=== PATIENT | female | born 2005 | race Caucasian/White ===

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

== ENCOUNTER 2024-01-11 09:02 | Outpatient (CLI) | payer OTHER, SELFPAY ==
[2024-01-11 09:15] LABS: Basophils Absolute Auto 0.03 K/mm3 (0.00-0.10); Basophils Percent Auto 0.4 % (0.0-1.0); Eosinophils Absolute Auto 0.11 K/mm3 (0.02-0.50); Eosinophils Percent Auto 1.4 % (1.0-6.0); Hematocrit 42.6 % (35.0-49.0); Hemoglobin 14.2 g/dL (12.0-15.0); Immature Granulocyte Absolute 0.02 K/mm3 (0.00-0.00); Immature Granulocyte Percent A 0.3 % (0.0-0.0); Lymphocytes Absolute Auto 1.44 K/mm3 (1.10-4.50); Lymphocytes Percent Auto 18.6 % (18.0-42.0); Mean Corpuscular HGB Conc 33.3 g/dL (32-36); Mean Corpuscular Hemoglobin 28.4 pg (27.0-31.0); Mean Corpuscular Volume 85.2 fL (78.0-102.0); Mean Platelet Volume 9.5 fl (9.2-11.8); Monocytes Absolute Auto 0.44 K/mm3 (0.10-0.90); Monocytes Percent Auto 5.7 % (2.0-11.0); Neutrophils Absolute Auto 5.69 K/mm3 (1.70-7.20); Neutrophils Percent Auto 73.6 % (50.0-70.0); Platelet Count Result 279 K/mm3 (150-420); Red Cell Distribution Width 11.8 % (11.6-14.4); White Blood Count 7.7 K/mm3 (4.8-10.8)
[2024-01-13 04:08] LABS: Vitamin D 25 Hydroxy 25 ng/mL (30-100)
[2024-01-13 10:56] LABS: Alanine Aminotransferase 17 U/L (6-35); Albumin Level 4.8 g/dL (3.7-5.6); Alkaline Phosphatase 62 U/L (45-116); Anion Gap 10 mmol/L (4-12); Aspartate Amino Transferase 22 U/L (14-36); Bilirubin,Total 0.5 mg/dL (0.2-1.3); Blood Urea Nitrogen 12 mg/dL (8-21); Calcium 9.7 mg/dL (8.9-10.7); Carbon Dioxide 24 mmol/L (22-30); Chloride 105 mmol/L (98-107); Cholesterol 219 mg/dL (0-200); Estimated Glomerular Filt Rate > 60; Glucose 76 mg/dL (65-110); HDL Direct 76 mg/dL; LDL Cholesterol Calculated 129 mg/dL (<130); Osmolality Calculated 286 mOsm/kg (285-295); Potassium 4.2 mmol/L (3.4-5.0); Sodium 139 mmol/L (134-143); Triglycerides 70 mg/dL (<150)
== END 2024-01-11 09:03 | disposition home or self-care (01) ==
PROVIDERS: PCP Nurse Practitioner Family; Visit Provider Family Medicine
DX: Z00.00 Encounter for general adult medical examination without abnormal findings (principal); Z13.29 Encounter for screening for other suspected endocrine disorder; S69.92XA Unspecified injury of left wrist, hand and finger(s), initial encounter; F32.9 Major depressive disorder, single episode, unspecified; E55.9 Vitamin D deficiency, unspecified; E53.8 Deficiency of other specified B group vitamins; Z79.899 Other long term (current) drug therapy; R74.01 Elevation of levels of liver transaminase levels; Z13.220 Encounter for screening for lipoid disorders
CPT/HCPCS: 36415; 80053; 80061; 82306; 82607; 84443; 85025

== ENCOUNTER 2024-02-01 20:08 | Emergency (ER) | payer OTHER, SELFPAY ==
--- NOTE | ~2024-02-01 | XR_ITS ---
EXAM: XR foot LT min 3V DATE: 02/01/2024 20:33 HISTORY: Nontraumatic pain . COMPARISON: None available. FINDINGS: Normal mineralization. No fracture or dislocation. No lytic or blastic lesion. Joint space s are maintained. No erosion or periosteal change. Soft tissues within normal limits. IMPRESSION: No acute osseous finding in the left foot. Reviewed, dictated and finalized at location K.
[2024-02-01 20:13] VITALS: BP 121/57; PULSE 79; RESP 18; TEMP 36.9; O2SAT 99
[2024-02-01 20:16] VITALS: BP 121/57; PULSE 79; RESP 18; TEMP 36.9; O2SAT 99
--- NOTE | 2024-02-01 20:22 | ED.EXTPRO ---
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 She denies any trauma. Related Data Allergies Allergy/AdvReac Type Severity Reaction Status Date / Time codeine Allergy Unknown Verified 02/01/24 20:13 Sulfa (Sulfonamide Allergy Unknown Verified 02/01/24 20:13 Antibiotics) sulfamethoxazole Allergy Unknown Verified 02/01/24 20:13 [From Bactrim] trimethoprim [From Bactrim] Allergy Unknown Verified 02/01/24 20:13 Sulfonamides Allergy Intermediate Unknown Uncoded 02/01/24 20:13 Review of Systems Review of Systems: All systems reviewed & are unremarkable except as noted in HPI and below PMFSH Past Medical History Medical History Anxiety GERD (gastroesophageal reflux disease) Seasonal allergies Wrist injury Surgical History Surgical History H/O eye surgery Family History Family History Father Diabetes mellitus Hypothyroidism Hyperlipidemia Sibling Depression Ankylosing spondylitis Seronegative rheumatoid arthritis Asthma Anxiety Mother Depression Anxiety Grandparent Cancer Alcoholism Social History Social History Social History: Caffeine-soda Smoking status: Never smoker Alcohol intake: never Substance use: former Substance use type: marijuana Lack of Transportation: No Lack of Food: Never True Current Housing: I Have Housing Concerned About Future Housing: No Difficulty Paying Gas/Electric Bills: No Difficulty Paying for Meds: No Currently Unemployed: No Education: High School Diploma/GED Difficulty w/ Childcare or Family Care: No Living arrangements: with family Occupation/Education: student Gender identity (if verbalized by the patient): Female Agree to blood products: Yes Exam Narrative: General appearance: Well-developed, well-nourished Skin: Normal color Vascular: Normal peripheral pulses, normal capillary refill. Musculoskeletal: Mild to moderate tenderness at the ball of the foot between the big toe and 2nd toe. No swelling, no bruises, Neurologic: Alert and oriented ?3, MACHINE TAPER is normal as tested, no gross motor deficit Course Vital Signs Vital signs: Vital Signs Temperature 36.9 C 02/01/24 20:13 Pulse Rate 79 02/01/24 20:13 Respiratory Rate 18 02/01/24 20:13 Blood Pressure 121/57 L 02/01/24 20:13 Pulse Oximetry 99 02/01/24 20:13 Oxygen Delivery Room Air 02/01/24 20:13 Temperature 36.9 C 02/01/24 20:16 Pulse Rate 79 02/01/24 20:16 Respiratory Rate 18 02/01/24 20:16 Blood Pressure 121/57 L 02/01/24 20:16 Pulse Oximetry 99 02/01/24 20:16 Oxygen Delivery Room Air 02/01/24 20:16 MDM - Extremity (Nontraumatic) Differential Diagnosis Differential diagnosis: Likely other ( tendinitis, plantar fasciitis, Arriola's neuroma, tight shoes) Critical Care Time Critical Care Time Critical Care Time: No Discharge Plan Discharge Clinical Impression: Acute foot pain Patient Disposition: Home, Self-Care Condition: Stable Instructions: Arriola Neuroma (ED), Metatarsalgia (DC) Additional Instructions: Return if symptoms are worsening , call your family niels
--- NOTE | 2024-02-01 20:28 | PC.NURSE ---
xray completed at the bedside
== END 2024-02-01 20:55 | disposition home or self-care (01) ==
PROVIDERS: Emergency Provider Emergency Medicine; PCP Family Medicine
DX: M79.672 Pain in left foot (principal)
CPT/HCPCS: 73630; 99283

== ENCOUNTER 2024-02-21 08:41 | Outpatient (CLI) | payer OTHER, SELFPAY ==
--- NOTE | ~2024-02-21 | XR_ITS ---
XR abdomen/kub 1V Ordering provider: Alexsandra Hardy DO History: . LT diaphragm pain X couple months, hunch over/apply pressure . Comparison: None. FINDINGS: BOWEL: Nonobstructive bowel gas pattern. ORGANOMEGALY: None. SIGNIFICANT PATHOLOGIC CALCIFICATIONS: None. OTHER: No free air is seen under the diaphragm. IMPRESSION: NO ACUTE ABDOMINAL FINDINGS. Reviewed, dictated and finalized at location A.
== END 2024-02-21 08:42 | disposition home or self-care (01) ==
PROVIDERS: PCP Family Medicine; Visit Provider Family Medicine
DX: R10.9 Unspecified abdominal pain (principal)
CPT/HCPCS: 74018

== ENCOUNTER 2024-05-03 02:20 | Emergency (ER) | payer OTHER, SELFPAY ==
[2024-05-03 02:25] VITALS: BP 141/87; PULSE 110; RESP 16; TEMP 36.4; O2SAT 98
--- NOTE | 2024-05-03 02:27 | PC.NURSE ---
COVID PCR obtained and taken to lab
--- NOTE | 2024-05-03 02:42 | ED_ITS ---
HPI - General Adult General Chief complaint: Nausea/Vomiting/Diarrhea Stated complaint: VOMITING Time Seen by Provider: 05/03/24 02:28 Source: patient Mode of arrival: ambulatory Limitations: no limitations History of Present Illness HPI narrative: 18-year-old complains of nausea and vomiting that started 1 hour prior to coming to the emergency department. She vomited up her food and had several diarrheal stools loose watery nonbloody. Prior to that she was doing fine eating and drinking voiding. Fine no bleeding or bruising problems walking or talking or seeing or hearing. Denies any rash or itching cough fever some shortness of breath difficulty breathing sore throat dizziness or lightheadedness swelling lumps or bumps or any other complaints. Past medical history: Anxiety depression on citalopram. she is on omeprazole Allergies: Codeine sulfa Bactrim. Related Data Allergies Allergy/AdvReac Type Severity Reaction Status Date / Time codeine Allergy Unknown Verified 05/03/24 02:28 Sulfa (Sulfonamide Allergy Unknown Verified 05/03/24 02:28 Antibiotics) sulfamethoxazole (From Allergy Unknown Verified 05/03/24 02:28 Bactrim) trimethoprim (From Bactrim) Allergy Unknown Verified 05/03/24 02:28 Sulfonamides Allergy Intermediate Unknown Uncoded 02/20/24 13:28 Review of Systems 2 Review of Systems: All systems reviewed & are unremarkable except as noted in HPI and below PMFSH Past Medical History Medical History Seasonal allergies Wrist injury Anxiety GERD (gastroesophageal reflux disease) Surgical History Surgical History H/O eye surgery Family History Family History Father Diabetes mellitus Hypothyroidism Hyperlipidemia Sibling Depression Ankylosing spondylitis Seronegative rheumatoid arthritis Asthma Anxiety Mother Depression Anxiety Grandparent Cancer Alcoholism Social History Social History Social History: Caffeine-soda Smoking status: Never smoker Alcohol intake: never Substance use: former Substance use type: marijuana Lack of Transportation: No Lack of Food: Never True Current Housing: I Have Housing Concerned About Future Housing: No Difficulty Paying Gas/Electric Bills: No Difficulty Paying for Meds: No Currently Unemployed: No Education: High School Diploma/GED Difficulty w/ Childcare or Family Care: No Living arrangements: with family Occupation/Education: student Gender identity (if verbalized by the patient): Female Agree to blood products: Yes Exam 2 Narrative: White female patient with Mild distress, shivering with goose bumps.? Head normocephalic, atraumatic.? Eyes conjunctiva pink sclera nonicteric.? Extraocular movements are intact.? Ears externally normal. ?Oropharynx is clear with moist mucous membranes without exudates.? Neck is supple nontender no lymphadenopathy.? Back is nontender.? Lungs are clear.? Heart is Tachycardic rate and regular rhythm without murmurs gallops or rubs.? Chest wall nontender. Abdomen is soft and nontender no hepatosplenomegaly or masses no CVA tenderness no abdominal bruits.? Extremities no cyanosis clubbing or edema.? Skin is warm and dry without rashes or lesions.? Neurological patient is alert and oriented x4.? Motor and sensory grossly intact.? Gait is normal. Course Vital Signs Vital signs: Vital Signs Temperature 36.4 C 05/03/24 02:25 Pulse Rate 110 H 05/03/24 02:25 Respiratory Rate 16 05/03/24 02:25 Blood Pressure 141/87 H 05/03/24 02:25 Pulse Oximetry 98 05/03/24 02:25 Oxygen Delivery Room Air 05/03/24 02:25 Temperature 36.4 C 05/03/24 02:25 Pulse Rate 73 05/03/24 04:34 Respiratory Rate 18 05/03/24 04:34 Blood Pressure 115/77 05/03/24 04:34 Pulse Oximetry 100 05/03/24 04:34 Oxygen Delivery Room Air 05/03/24 04:34 Medical Decision Making [facility] Narrative Medical decision making narrative: ?Patient placed in room: 1 with her boyfriend ? History and physical was performed. Normal CBC and lipase, flu COVID and RSV Normal CMP except for potassium at 3.3 and ALT of 76 and Osmo 296 Urine specific gravity 1.030+1 ketones Independent Historian: boyfriend External Source Review: Differential Dx includes but not limited to: COVID flu RSV dehydration nausea vomiting diarrhea volume depletion Medications were Reviewed: home meds reviewed Medications given: normal saline 1 L bolus Zofran 4 mg IV , K-Dur 40 p.o. Patient is feeling much better at discharge any nausea or discomfort or pain. Independently Interpreted by me: Labs independently interpreted by me. Shared decision Making: evaluation was discussed all questions were asked and answered patient agreed with the plan she would take K-Dur 40 mg a daily for 10 days, Zofran every 4 hours as needed for nausea vomiting follow up with her primary care provider return if she got worse or develops any new symptoms. Social Situation Impacting Patients Care: Discussed with Dr. MENSAH DIAGNOSIS: nausea vomiting diarrhea, volume depletion, hyponatremia mild DISPOSITION : discharge home CONDITION AT DISCHARGE: stable Vital Signs Vital Signs: Vital Signs Temperature 36.4 C 05/03/24 02:25 Pulse Rate 110 H 05/03/24 02:25 Respiratory Rate 16 05/03/24 02:25 Blood Pressure 141/87 H 05/03/24 02:25 Pulse Oximetry 98 05/03/24 02:25 Oxygen Delivery Room Air 05/03/24 02:25 Temperature 36.4 C 05/03/24 02:25 Pulse Rate 73 05/03/24 04:34 Respiratory Rate 18 05/03/24 04:34 Blood Pressure 115/77 05/03/24 04:34 Pulse Oximetry 100 05/03/24 04:34 Oxygen Delivery Room Air 05/03/24 04:34 Lab Data 05/03/24 02:35 05/03/24 02:35 Labs: Lab Results 05/03/24 05/03/24 05/03/24 Range/Units 02:35 03:01 03:33 WBC 7.7 (4.8-10.8) K/mm3 RBC 5.11 (4.20-5.40) M/mm3 Hgb 14.4 (12.0-15.0) g/dL Hct 42.6 (35.0-49.0) % MCV 83.4 (78.0-102.0) fL MCH 28.2 (27.0-31.0) pg MCHC 33.8 (32-36) g/dL RDW 11.9 (11.6-14.4) % Plt Count 326 (150-420) K/mm3 MPV 9.6 (9.2-11.8) fl Sodium 143 (136-145) mmol/L Potassium 3.3 L (3.5-5.1) mmol/L Chloride 106 (98-108) mmol/L Carbon Dioxide 24 (21-32) mmol/L Anion Gap 13 H (4-12) mmol/L BUN 9 (7-18) mg/dL Creatinine 0.95 (0.55-1.02) mg/dL Estim Creat Clear Calc 82 ml/min Estimated GFR > 60 (59 - ) Glucose 127 H (70-99) mg/dL Calculated Osmolality 296 H (285-295) mOsm/kg Calcium 9.3 (8.5-10.1) mg/dL Total Bilirubin 0.5 (0.00-1.00) mg/dL AST 26 (15-37) U/L ALT 76 H (14-59) U/L Alkaline Phosphatase 68 (50-130) U/L Total Protein 8.0 (6.4-8.2) g/dL Albumin 4.3 (3.4-5.0) g/dL Lipase 47 (16-77) U/L Serum HCG, Qual Negative Urine Color Light yellow (Yellow) Urine Appearance Clear (Clear) Urine pH 6.0 (5.0-8.0) Ur Specific [place] >= 1.030 H (1.010-1.020) Urine Protein Negative (Negative) Urine Glucose (UA) Negative (Negative) Urine Ketones 1+ H (Negative) Ur Blood (Man) Negative (Negative) Urine Nitrate Negative (Negative) Urine Bilirubin Negative (Negative) Urine Urobilinogen 0.2 (0.2-1.0) mg/dL Leukocyte Esterase Rfl Negative (Negative) LACY/UL Influenza A (RT-PCR) Negative (Negative) Influenza B (RT-PCR) Negative (Negative) RSV (RT-PCR) Negative (Negative) SARS-CoV-2 RNA (RT-PCR) Negative (Negative) Discharge Plan Discharge Clinical Impression: Nausea vomiting and diarrhea, Fluid volume depletion, Acute hypokalemia Patient Disposition: Home, Self-Care Condition: Stable Instructions: Gastroenteritis (ED), Acute Nausea and Vomiting (ED) Additional Instructions: advance her diet slowly as tolerated. Zofran 4 mg oral dissolvable tablet under the tongue every 4 hours as needed for nausea vomiting. K-Dur 40 mEq daily for 10 days. Follow-up with primary care provider within the next 1-7 days. Return if you get worse or develops any new symptoms. Patient Language: Zimbabwean Prescriptions: New potassium chloride 20 mEq tablet,ER particles/crystals 40 meq PO DAILY 10 Days Qty: 20 0RF ondansetron 4 mg tablet,disintegrating 4 mg PO Q4H PRN (Reason: nausea and vomiting) 5 Days Qty: 12 0RF Rx Instructions: give 1st dose 30min before emetogenic chemo No Action omeprazole 20 mg capsule,delayed release(DR/EC) 20 mg PO DAILY Qty: 90 1RF escitalopram oxalate [Lexapro] 10 mg tablet 15 mg PO DAILY 90 Days Qty: 135 1RF norethindrone ac-eth estradiol [05/28 (21)] 1-20 mg-mcg tablet 1 tablet PO DAILY Qty: 63 2RF Follow-up/Referrals: Alexsandra Hardy DO [Primary Care Provider] - Time of Disposition: 04:37
[2024-05-03] MEDS: ONDANSETRON INJ 4 MG/2 ML VIAL IV PUSH (02:49)
[2024-05-03] MEDS: SODIUM CHLORIDE 0.9% IV 1,000 ML 999 ML IV CONT (02:49)
--- NOTE | 2024-05-03 02:55 | PC.NURSE ---
PATIENT IS AWARE THAT A URINE SAMPLE IS NEEDED. DOES NOT NEED TO VOID AT THIS TIME. CALL LIGHT IN REACH. BOYFRIEND AT THE BEDSIDE
[2024-05-03 02:57] LABS: Hematocrit 42.6 % (35.0-49.0); Hemoglobin 14.4 g/dL (12.0-15.0); Mean Corpuscular HGB Conc 33.8 g/dL (32-36); Mean Corpuscular Hemoglobin 28.2 pg (27.0-31.0); Mean Corpuscular Volume 83.4 fL (78.0-102.0); Mean Platelet Volume 9.6 fl (9.2-11.8); Platelet Count Result 326 K/mm3 (150-420); Red Blood Count 5.11 M/mm3 (4.20-5.40); Red Cell Distribution Width 11.9 % (11.6-14.4); White Blood Count 7.7 K/mm3 (4.8-10.8)
[2024-05-03 03:02] LABS: SPREG INTERNAL CONTROL Positive; Serum Qual hCG Negative
[2024-05-03 03:11] LABS: Influenza A QL RT-PCR Negative (Negative); Influenza B QL RT-PCR Negative (Negative); RSV RNA, RT-PCR Negative (Negative); SARS-CoV-2 RNA PCR Negative (Negative)
[2024-05-03 03:16] LABS: Alanine Aminotransferase 76 U/L (14-59); Albumin Level 4.3 g/dL (3.4-5.0); Alkaline Phosphatase 68 U/L (50-130); Anion Gap 13 mmol/L (4-12); Aspartate Amino Transferase 26 U/L (15-37); Bilirubin,Total 0.5 mg/dL (0.00-1.00); Blood Urea Nitrogen 9 mg/dL (7-18); Calcium 9.3 mg/dL (8.5-10.1); Carbon Dioxide 24 mmol/L (21-32); Chloride 106 mmol/L (98-108); Estimated CRCL calculation 82 ml/min; Estimated Glomerular Filt Rate > 60; Glucose 127 mg/dL (70-99); Lipase 47 U/L (16-77); Osmolality Calculated 296 mOsm/kg (285-295); Potassium 3.3 mmol/L (3.5-5.1); Sodium 143 mmol/L (136-145)
--- NOTE | 2024-05-03 03:31 | PC.NURSE ---
PATIENT AMBULATED TO THE BATHROOM. ENCOURAGED PATIENT TO PROVIDE URINE SAMPLE.
--- NOTE | 2024-05-03 03:34 | PC.NURSE ---
URINE SAMPLE GIVEN. PATIENT REPORTS THAT THE ZOFRAN HELPED WITH HER NAUSEA
[2024-05-03 03:40] LABS: Add Urine Microscopic? NO; Appearance Urine Clear (Clear); Bilirubin Urine Negative (Negative); Blood Urine Negative (Negative); Color Urine Light Yellow (Yellow); Glucose Urine UA Negative (Negative); Ketones Urine 1+ (Negative); Leukocyte Esterase Ur Negative LEU/UL (Negative); Nitrate Urine Negative (Negative); Protein Urine Negative (Negative); Specific Grav Ur >= 1.030 (1.010-1.020); Urobilinogen Urine 0.2 mg/dL (0.2-1.0)
[2024-05-03] MEDS: POTASSIUM CHLORIDE 20 MEQ ER TABLET 40 MEQ PO (04:00)
--- NOTE | 2024-05-03 04:28 | PC.NURSE ---
PATIENT RESTING ON STRETCHER. REPORTS THAT SHE IS FEELING BETTER. BOYFRIEND AT HER SIDE. CALL LIGHT IN REACH
[2024-05-03 04:34] VITALS: BP 115/77; PULSE 73; RESP 18; O2SAT 100
--- OUTSIDE RECORDS SUMMARY | 2024-05-10 03:23 | XMS_ITS | Patient Health Summary ---
Author Organization [facility] Address [address] [place] [address] Care Team Providers Care Technical Services Coordinator Name Role Phone Jayne Maguire Avinash VALDES-BOOKING PRIZER Primary Care Provider Note from [facility],non-owned Affiliates and Associated Physician Practices is amultiple site organization consisting of ambulatory clinics and hospital sitesin [place], [place], [place] and [place]. This disclosure is being madepursuant to the Care Everywhere program and may not contain all information available regarding this patient. Last updated 18.[facility] Allergies * Doxycycline(Rash) -Low Criticality Medications * Be aware that medications may not be up to date on this document. Alwaysverify current medications with the patient. * montelukast (SINGULAIR) 4 MG chew tablet(Started 03/06/2010) Take 4 mg by mouth daily. * acetaminophen (TYLENOL) 160 MG/5ML SOLN solution(Started 03/12/2010) Take 11.5 mL by mouth every 4 hours as needed for Fever and Pain. Active Problems No known active problems Social History Tobacco Use Types Packs/Day Years Used Date Smoking Tobacco: Passive Smo ke Exposure - Never Smoker Smokeless Tobacco: Never Alcohol Use Standard Drinks/Week Comments No 0 (1 standard drink = 0.6 oz pur e alcohol) Sex and Gender Information Value Date Recorded Sex Assigned at Not on file Gender Identity Not on file Sexual Orientation Not on file Last Filed Vital Signs Vital Sign Reading Time Taken Comments Blood Pressure 110/64 03/12/2010 8:14 AM CDT Pulse 96 03/12/2010 8:44 AM CDT Temperature 36.8 ??C (98.2 ??F) 03/12/2010 8:14 AM CD T Respiratory Rate 24 03/12/2010 8:44 AM CDT Oxygen Saturation 98% 03/12/2010 8:00 AM CDT Inhaled Oxygen Concentration - - Weight 24.1 kg (53 lb 2.1 oz) 03/12/2010 5:48 AM CDT Height 120.5 cm (3' 11.44 ) 03/12/2010 5:48 AM C DT Glhzax-khb-Qtmnap Percentile 73.76% 03/12/2010 5 :48 AM CDT Growth Chart: [facility] (Girls, 2- 20 Years) Body Mass Index 16.6 03/12/2010 5:48 AM CDT Body Mass Index Percentile 80.68% 03/12/2010 5:4 8 AM CDT Growth Chart: [facility] (Girls, 2- 20 Years) Procedures * PATHOLOGY/CYTOLOGY REPORT ORDER(Performed 03/14/2010) * GROSS + MICRO EXAM(Performed 03/12/2010) Results * PATHOLOGY/CYTOLOGY REPORT ORDER (03/14/2010 9:44 AM CDT) Narrative Procedure Note Document, Scanned - 03/14/2010 6:11 AM CDT Scanned Document LAB - PATHOLOGY/CYTO LOGY ORDERABLES * GROSS + MICRO EXAM (03/12/2010 7:30 AM CDT) [facility] Clinical History [facility] Comment: The patient is a 4-year-old girl with a conjunctival cyst of the left lower eyelid. ?? Gross Description [facility] Comment: Submitted fresh in one container for gross and microscopic examination, labeled with the patient's name, Yaa Layne, and lesion - left eyelid, is a 1 x 0.3 x 0.1 cm rectangular fragment of glistening red- holley soft tissue, submitted in toto as ??A1. ??(CT/nab) Microscopic Examination [facility] Comment: 1 H+E. Sections show non-keratinizing stratified squamous epithelium overlying a lamina propria containing granulation tissue, a dense mixed inflammatory infiltrate, and several non-necrotizing granulomata with scattered multinucleated giant cells, some of which have cytoplasmic lipid vacuoles. ??(DSB/ld) Diagnosis [facility] Comment: DIAGNOSIS: LESION-LEFT EYELID, EXCISION: -CHALAZION. This case has been personally reviewed and interpreted by the attending (teaching) pathologist. Addendum 1 [facility] Comment: 1 GMS, 1 acid fast. GMS and acid fast stains are negative for fungi and acid-fast microorganisms, respectively. ??(DSB/lw) Hotel Director HARRIETT CULLEN, [facility] Pathologist Ciro Antunez M.D. [facility] Electronically Signed By CIRO ANTUNEZ M.D . [facility] LESION SPECIMEN / Unknown 03/12/2010 7:30 AM CDT 03/12/2010 9:27 AM CDT Martin Thao MD LAB - PATHOLOGY/CYT OLOGY ORDERABLES Performing Organization Address City/State/[facility] Co de Phone Number [facility] [address] [place] [address] Care Teams Technical Services Coordinator Relationship Specialty Start Date End Date Jayne Maguire, TOOL PROCUREMENT COORDINATOR-BOOKING PRIZER [address] [place] [phone] PCP - General Nurse Practitioner Family 12/03/19
--- OUTSIDE RECORDS SUMMARY | 2024-05-10 03:23 | XMS_ITS | Encounter Summary ---
Author Organization [facility] Address [address] [place] [address] Care Team Providers Care Metal Cnc Operator Name Role Phone Prabha Gomez MD Primary Care Provider [phone] Encounter Details Date Type Department Care Team (Latest Contact Info) Description 03/12/2010 12:01 AM CDT - 03/12/2010 9:05 AM CDT Hospital Encounter [facility] - [address] [address] Fabian Maldonado MD [address] [place] [phone] Ophthalmology Discharge Disposition: Home or Self Care Social History Tobacco Use Types Packs/Day Years Used Date Smoking Tobacco: Passive Smo ke Exposure - Never Smoker Smokeless Tobacco: Never Alcohol Use Standard Drinks/Week Comments No 0 (1 standard drink = 0.6 oz pur e alcohol) Sex and Gender Information Value Date Recorded Sex Assigned at Not on file Gender Identity Not on file Sexual Orientation Not on file documented as of this encounter Last Filed Vital Signs Vital Sign Reading [...] 11.44 ) 03/12/2010 5:48 AM C DT Vwaehn-oli-Gjkzeb Percentile 73.76% 03/12/2010 5 :48 AM CDT Growth Chart: [facility] (Girls, 2- 20 Years) Body Mass Index 16.6 03/12/2010 5:48 AM CDT Body Mass Index Percentile 80.68% 03/12/2010 5:4 8 AM CDT Growth Chart: [facility] (Girls, 2- 20 Years) documented in this encounter Discharge Summaries * Angela Hearn MD - 03/12/2010 7:43 AM CDT Images from the original note were not included. SAME DAY SURGERY DISCHARGE SUMMARY Patient ID: Katelyn Layne [id number] 4 y.o. 2005 Discharge Date: 03/12/2010 Discharge Diagnoses: Lesion LLL Discharge Condition: Stable. Doing well. Discharge Medication: Please see Discharge Instructions for a complete list of medications. Tylenol, Maxitrol drops Discharge Procedure Orders NO RESTRICTIONS. NO ACTIVITY RESTRICTIONS AT DISCHARGE GENERAL ANESTHESIA /IV SEDATION INSTRUCTIONS For the remainder of the day, patient should relax. A feeling of dizziness, light-headedness or drowsiness is not unusual. Move cautiously, fast movements can make this feeling worse. If patient has been lying down, he/she should sit up slowly and pause briefly before standing. We strongly suggest that a responsible adult monitor the patient more closely than usual until tomorrow morning for his/her comfort and safety. PATIENT TO CALL PHYSICIAN/CLINIC FOR APPOINTMENT Follow up as previously scheduled PRESCRIPTIONS GIVEN TO PATIENT/FAMILY Follow-Up: As scheduled. Call [facility] and ask for on-call eye resident if any urgent concerns or problems. Angela Hearn MD documented in this encounter Discharge Instructions * Discharge Instructions* Hien Lawrence RN - 03/12/2010 8:13 AM CDT Discharge Instructions for: Katelyn Layne Discharge Procedure Orders NO RESTRICTIONS. NO ACTIVITY RESTRICTIONS AT DISCHARGE GENERAL ANESTHESIA /IV SEDATION INSTRUCTIONS For the remainder of the day, patient should relax. A feeling of dizziness, light-headedness or drowsiness is not unusual. Move cautiously, fast movements can make this feeling worse. If patient has been lying down, he/she should sit up slowly and pause briefly before standing. We strongly suggest that a responsible adult monitor the patient more closely than usual until tomorrow morning for his/her comfort and safety. PATIENT TO CALL PHYSICIAN/CLINIC FOR APPOINTMENT Follow up as previously scheduled PRESCRIPTIONS GIVEN TO PATIENT/FAMILY The following belonging have been returned to you Clothing Clothing: Yes With Patient: Shirt;Pants;Footwear Jewelry Jewelry: None Dentures Dentures/Retainers: None Vision Visual Aids: None Hearing Aids Hearing Aids: None Home Medications Home Medications: None Miscellaneous Belongings Miscellaneous Items: Yes With Patient: Stuffed Animal (Toy) Monetary Monetary Items: None If because of the time of day, the doctors on this sheet are unavailable and your child has any worsening of their condition, please phone [phone] and ask for the doctor cone classifier tender for EYE?OPTHALMOLOGY, or return to the Emergency Department, or notify your primary care doctor. No aspirin, ibuprofen, motrin, advil or aleve products for 2 weeks Call [phone] if any of the following occur at home: 1. Unrelieved pain 2. Vomiting 2-3 times or more and your child will not drink anything 3. Excessive bleeding at surgical site 4. Excessive redness/or unusual drainage at surgical site or IV site 5. Fever greater than 100 degrees under the arm or 101 degrees orally 6. Have not urinated by bedtime tonight Last dose of pain medication was at 8:00AM. May give again at 12:00PM. Call [phone] to make your follow up appt. 03/12/2010 * Discharge Instructions* Document, Scanned - 03/14/2010 6:11 AM CDT documented in this encounter Medications at Time of Discharge Medication Sig Dispensed Refills Start Date End Date acetaminophen (TYLENOL) 160 MG/5ML SOLN solution Take 11.5 mL by mouth every 4 hours as needed for Fever and Pain. 1 mL 0 03/12/2010 montelukast (SINGULAIR) 4 MG chew tablet Take 4 mg by mouth daily. 03/06/2010 efxfpynf-qlvepkoet-hgvlr ethasone (MAXITROL) 0.1 % ophthalmic suspension Instill 1 Drop into left eye 4 times daily - before meals & nightly for 7 days. 03/12/2010 03/19/2010 documented as of this encounter Progress Notes * Imani BrambilaJ Luis - 03/12/2010 6:40 AM CDT Katelyn Layne 4 y.o. female : 2005 PRE-ANESTHESIA EVALUATION Scheduled Procedure Scheduled procedure: Incision and Drainage Conjunctival Cyst Left Eye, Exam Under Anesthesia There is no problem list on file for this patient. Allergies Doxycycline Meds Prescriptions prior to admission Medication Sig Dispense Refill ??? montelukast (SINGULAIR) 4 MG chew tablet Take 4 mg by mouth daily. Current facility-administered medications Medication Dose Route Frequency Provider Last Rate Last Dose ??? cyclopentolate (CYCLOGYL) 2% ophthalmic solution 1 Drop Each Eye DIRECTED Angela Hearn MD ??? phenylephrine (MYDFRIN) 2.5% ophthalmic solution 1 Drop Each Eye DIRECTED Angela Hearn MD No past medical history on file.Past Surgical History Procedure Date ??? Negative surgical history No family history on file. Labs: No results found for this basename: WBC,HGB,HCT,PLTCOUNT in the last 95214 hours No results found for this basename: SODIUM,POTASSIUM,CLORIDE,CO2,BUN,CREATININE,GLUCOSE in the mmwx07943 hours No results found for this basename: PT,INR,PTT in the last 19295 hours Test: No results found for this basename: HCGURINE,HCGQUAL in the last 74863 hours VITAL SIGNS Temp: 97.7 ??F Pulse: 100 Resp: 28 BP: 94/62 mmHg Weight: 24.1 kg (53 lb 2.1 oz) Height: 120.5 cm (3' 11.44 ) SpO2: 100 % Pre-Eval ExamPrevious Review I reviewed previous documentation: Yes (h&p) PHYSICAL EXAM NPO status: Since Midnight Heart Sounds: S1 S2 Respiratory Pattern/Effort: CTA Oriented x 3: Yes Teeth: Loose (top front right tooth loose,bottom front perm. teeth coming ) Airway Class: I ANESTHESIA ASA: I Anesthesia Choices: General Post-Op: PACU Patient prefers Mask flavor: Bubble gum I have discussed anesthesia with the parents including possible complications and techniques. He/She/They understand(s) and consent(s). * Erasmo Pinto DO - 03/12/2010 6:40 AM CDT I have personally reviewed the patient's condition and agree with the above evaluation and anesthetic plan. documented in this encounter H&P Notes * Angela Hearn MD - 03/11/2010 10:33 PM CDT Surgical History and Physical Katelyn Layne 4 y.o. female Planned Procedure: EUA and I & D OS Indication for Procedure: conjunctival cyst OS Date: 03/12/2010 History of Present Illness Katelyn Layne is a 4 y.o. female referred by Dr. Yessica DO in [place], [place], for conjunctivalcyst OS. Allergies: Doxycycline Medications: Current outpatient prescriptions Medication Sig Dispense Refill ??? montelukast (SINGULAIR) 4 MG chew tablet Take 4 mg by mouth daily. PMH: No past medical history on file. PSH: Past Surgical History Procedure Date ??? Negative surgical history Fam hx: No family history on file. Soc hx: History Social History ??? Marital Status: Single Spouse Name: N/A Number of Children: N/A ??? Years of Education: N/A Occupational History ??? Not on file. Social History Main Topics ??? Tobacco Use: Not on file ??? Alcohol Use: Not on file ??? Drug Use: Not on file ??? Sexually Active: Not on file Other Topics Concern ??? Not on file Social History Narrative ??? No narrative on file Review of Systems Pertinent items are noted in HPI Exam There were no vitals filed for this visit. General appearance: alert, cooperative, no distress Constitutional: no retractions or cyanosis Eyes: ocular motion with gaze alignment Cardiovascular: no cyanosis Respiration: unlabored breathing Abdomen: soft, non-tender Skin: skin healthy Extremities: no clubbing, cyanosis or edema Other pertinent exam: none Assessment and Plan Risks, benefits, and alternatives discussed with the patient / parents / guardian and questions answered. Plan to perform above noted procedure. Angela Hearn MD PGY-3 Ophtho Resident URE ROOM WORKER documented in this encounter Procedure Notes * Document, Scanned - 03/14/2010 6:11 AM CDTAssociated Order(s): PATHOLOGY/CYTOLOGY REPORT ORDER documented in this encounter OR Notes * Operative - Fabian Maldonado MD - 03/12/2010 7:39 AM [facility] Operative Report NAME: KATELYN LAYNE : 2005 UNIT #: [id number] DATE OF OPERATION: 03/12/2010 ATTENDING SURGEON: FABIAN MALDONADO M.D. PREOPERATIVE DIAGNOSIS: Chalazion left lower lid. POSTOPERATIVE DIAGNOSIS: Chalazion left lower lid with overlying pyogenic granuloma of conjunctiva. PROCEDURE: Excisional biopsy of suspected benign conjunctival lesion left lower lid and removal of a chalazionand also examination under anesthesia. SURGEON: Fabian Maldonado M.D. MANAGER WEB: Angela Hearn M.D. ANESTHESIA: General by mask. COMPLICATIONS: None. BLOOD LOSS: Minimal. PROCEDURE IN DETAIL: After obtaining informed consent, Katelyn was brought to the operating room where she was placed under general anesthesia. During induction of anesthesia intraocular pressures were measured 25 mmHg ODand 20 mmHg OS. A dilated fundus examination demonstrated normal macular vessels and disks bilaterally. Cycloplegic refraction found a correction of +1.75 sphere OD and +1.50 sphere OS. Next a chalazion clamp was placed on the left lower lid which was everted. This exposed what appeared to be a pyogenic granuloma overlying a chalazion. The pyogenic granuloma was excised and then blunt and sharp dissection was used to remove what appeared to be an old chalazion capsule beneath that. Cautery was a pplied and then the chalazion clamp was removed. Maxitrol drops were instilled into the left eye. Katelyn was then awakened from anesthesia, brought to the recovery room in stable condition, having tolerated the procedure well. Dictated By: Fabian Maldonado M.D. BVD/MedQ JOB ID: [id number] documented in this encounter Miscellaneous Notes * Miscellaneous Scans - Document, Scanned - 03/14/2010 6:11 AM CDT * Miscellaneous Scans - Document, Scanned - 03/14/2010 6:11 AM CDT * Miscellaneous Scans - Document, Scanned - 03/14/2010 6:11 AM CDT * Miscellaneous Scans - Document, Scanned - 03/14/2010 6:11 AM CDT documented in this encounter Plan of Treatment Not on file documented as of this encounter Procedures Procedure Name Priority Date/Time Associated Diagnosis Comments PATHOLOGY/CYTOLOGY REPORT ORDER 03/14/2010 9:44 AM CDT GROSS + MICRO EXAM Routine 03/12/2010 7: 30 AM CDT documented in this encounter Results * PATHOLOGY/CYTOLOGY REPORT ORDER (03/14/2010 9:44 AM CDT) Narrative Procedure Note Document, Scanned - 03/14/2010 6:11 AM CDT Scanned Document LAB - PATHOLOGY/CYTO LOGY ORDERABLES * GROSS + MICRO EXAM (03/12/2010 7:30 AM CDT) [facility] Clinical History [facility] Comment: The patient is a 4-year-old girl with a conjunctival cyst of the left lower eyelid. ?? Gross Description [facility] Comment: Submitted fresh in one container for gross and microscopic examination, labeled with the patient's name, Katelyn Layne, and lesion - left eyelid, is a 1 x 0.3 x 0.1 cm rectangular fragment of glistening red- holley soft tissue, submitted in toto as ??A1. ??(CT/nab) Microscopic Examination [facility] Comment: 1 H+E. Sections show non-keratinizing stratified squamous epithelium overlying a lamina propria containing granulation tissue, a dense mixed inflammatory infiltrate, and several non-necrotizing granulomata with scattered multinucleated giant cells, some of which have cytoplasmic lipid vacuoles. ??(DSB/ld) Diagnosis [facility] Comment: DIAGNOSIS: LESION-LEFT EYELID, EXCISION: -CHALAZION. This case has been personally reviewed and interpreted by the attending (teaching) pathologist. Addendum 1 [facility] Comment: 1 GMS, 1 acid fast. GMS and acid fast stains are negative for fungi and acid-fast microorganisms, respectively. ??(DSB/lw) Hemstitching Machine Operator HARRIETT CULLEN, [facility] Pathologist Ciro Antunez M.D. [facility] Electronically Signed By CIRO ANTUNEZ M.D . [facility] LESION SPECIMEN / Unknown 03/12/2010 7:30 AM CDT 03/12/2010 9:27 AM CDT Fabian Maldonado MD LAB - PATHOLOGY/CYT OLOGY ORDERABLES Performing Organization Address City/State/[facility] Co de Phone Number [facility] [address] [place] [address] documented in this encounter Visit Diagnoses Not on filedocumented in this encounter Administered Medications Inactive Administered Medications - up to 3 most recent administrations Medication Order MAR Action Action Date Dose Rate Site cyclopentolate (CYCLOGYL) 2% ophthalmic solution 1 drop, Each Eye, DIRECTED, 2 doses, Starting on Honey 11 at 0624, Until Honey 11 at 0655, Instill in affected eye(s) and repeat in 5 minutes X 1. Give along with phenylephrine 2.5%. $ Given 03/12/2010 6:55 AM CDT 1 drop $ Given 03/12/2010 6:49 AM CDT 1 drop midazolam (VERSED) injection 7 mg 7 mg (0.29 mg/kg), Oral, PRE-OP ONCE, 1 dose, High Risk, High Alert Medication: Must document double check on IV MAR flowsheet. $ Given 03/12/2010 6:58 AM CDT 7 mg phenylephrine (MYDFRIN) 2.5% ophthalmic solution 1 drop, Each Eye, DIRECTED, 2 doses, Starting on Honey 11 at 0624, Until Honey 1110 at 0655, Instill in affected eye(s) and repeat in 5 minutes. Give along with Cyclogyl 2 %. $ Given 03/12/2010 6:55 AM CDT 1 drop $ Given 03/12/2010 6:49 AM CDT 1 drop documented in this encounter Active and Recently Administered Medications Times are shown in CDT. Scheduled Medication Order 03/10/2010 03/11/2010 03/12/2010 cyclopentolate (CYCLOGYL) 2% ophthalmic solution (COMPLETED) 1 drop, Each Eye, DIRECTED, 2 doses, Starting on Honey 11 at 0624, Until Honey 03/12/10 at 0655, Instill in affected eye(s) and repeat in 5 minutes X 1. Give along with phenylephrine 2.5%. 0649 ($ Given - Prov ider: Belkis Cao RN)0655 ($ Given - Provider: Belkis Cao RN) midazolam (VERSED) injection 7 mg (COMPLETED) 7 mg (0.29 mg/kg), Oral, PRE-OP ONCE, 1 dose, High Risk, High Alert Medication: Must document double check on IV MAR flowsheet. 0658 ($ Given - Prov ider: Belkis Cao RN) phenylephrine (MYDFRIN) 2.5% ophthalmic solution (COMPLETED) 1 drop, Each Eye, DIRECTED, 2 doses, Starting on Honey 11 at 0624, Until Honey 11 at 0655, Instill in affected eye(s) and repeat in 5 minutes. Give along with Cyclogyl 2 %. 0649 ($ Given - Prov ider: Belkis Cao RN)0655 ($ Given - Provider: Belkis Cao RN) documented in this encounter Care Teams Metal Cnc Operator Relationship Specialty Start Date End Date Prabha Gomez MD [address] [place] [id number] PCP - General 03/06/10 12/02/19 documented as of this encounter
--- OUTSIDE RECORDS SUMMARY | 2024-05-10 03:23 | XMS_ITS | Clinical Summary ---
Author Organization [facility] Address [facility] [place] [address] [place] [address] Care Team Providers Care Grinder Needle Tip Name Role Phone Jayne Maguire [facility] Primary Care Provider + Allergies Active Allergy Reactions Criticality Noted Date Comments Codeine Hyperactive 04/16/2019 Sulfa Antibiotics Rash Low 04/16/2019 Medications medroxyPROGEST ERone 150 MG/ML injection INJECT 1ML INTRAMUSCULARLY FOR 1 DOSE STOP SPRINTEC 0 03/01/20 19 Active omeprazole 20 MG capsule Take 1 capsule by mouth as needed. 11/27/19 20 Active fexofenadine 180 MG tablet Take 180 mg by mouth daily. Active methylPREDNISo lone, MCKINLEY, 4 MG tabletIndicati ons:Contusion of left forearm, initial encounter,Numb ness and tingling in left hand 4 mg Oral Tablet Therapy Pack. Follow package directions 1 each 12/04/19 20 Active Active Problems Problem Noted Date Diagnosed Date Contusion of left forearm, initial encounter Numbness and tingling in left hand 12/04/2019 Hip strain, right, initial encounter 04/16/2019 Family History Medical History Relation Comments No Known Problems Brother Diabetes Father Hyperlipidemia Father hypothyroid Father No Known Problems Maternal Aunt Depression Maternal Grandfather Cancer Maternal Grandmother No Known Problems Maternal Uncle No Known Problems Mother Other Paternal Aunt Diabetes Paternal Grandfather Heart Paternal Grandfather Stroke Paternal Grandfather Cancer Paternal Grandmother No Known Problems Paternal Uncle No Known Problems Sister Relation Status Comments Brother Alive Father Alive Maternal Aunt Alive Maternal Grandfather Maternal Grandmother Maternal Uncle Alive Mother Alive Paternal Aunt Alive Paternal Grandfather Paternal Grandmother Paternal Uncle Alive Sister Alive Social History Tobacco Use Types Packs/Day Years Used Date Smoking Tobacco: Never Smokeless Tobacco: Never Alcohol Use Standard Drinks/Week Comments Yes 0 (1 standard drink = 0.6 oz pur e alcohol) occasionally Comments Unknown Sex and Gender Information Value Date Recorded Sex Assigned at Not on file Legal Sex Female 5:51 PM 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 Gender Identity Not on file Sexual Orientation Not on file Last Filed Vital Signs Vital Sign Reading Time Taken Comments Blood Pressure - - Pulse - - Temperature - - Respiratory Rate - - Oxygen Saturation - - Inhaled Oxygen Concentration - - Weight 74.8 kg (165 lb) 12/04/2019 10:22 AM CDT Height 170.2 cm (5' 7 ) 12/04/2019 10:22 AM CDT Body Mass Index 25.84 12/04/2019 10:22 AM CDT Body Mass Index Percentile 90.35% 12/04/2019 10: 22 AM CDT Growth Chart: CDC (Girls, 2- 20 Years) Plan of Treatment Health Maintenance Due Date Last Done Comments Hepatitis B Vaccines (3 of 3 - 3-dose series) 12/21/2005 09/29/2005, 08/31/2005 Annual Physical 07/12/2007 DTaP, Tdap and Td Vaccines (5 - Tdap) 07/12/2015 09/04/2009, 09/29/2005, 08/31/2005, Additional history exists Hepatitis C 2022 COVID-19 Vaccine (2023- season) 2024 Influenza Adult (#1) 2024 HPV Vaccines Completed 09/14/2018, 06/16/2017 Meningococcal Vaccine Aged Out No jesus shauna eligible based on patient's age to complete this topic Pneumococcal Vaccine: Pediatrics (0 to 5 Years) and At-Risk Patients (6 to 64 Years) Aged Out No longer eligible based on patient's age to complete this topic RSV Immunizations Under 20 Months Aged Out No longer eligible based on patient's age to complete this topic Insurance CIG Care Teams Grinder Needle Tip Relationship Specialty Start Date End Date Jayne Maguire, REIMBURSEMENT REPRESENTATIVE- [address] [place] [address] PCP - General NURSE PRACTITIONER 04/16/19
--- OUTSIDE RECORDS SUMMARY | 2024-05-10 03:23 | XMS_ITS | Clinical Summary ---
Author Organization [facility] Address [address] [place] [address] Care Team Providers Care Sample Coordinator Name Role Phone Jayne Maguire Avinash VALDES-MANAGER APPLIED Primary Care Provider Source Comments [facility],non-owned Affiliates and Associated Physician Practices is amultiple site organization consisting of ambulatory clinics and hospital sitesin [place], [place], [place] and [place]. This disclosure is being madepursuant to the Care Everywhere program and may not contain all information available regarding this patient. Last updated 18.[facility] Allergies Active Allergy Reactions Criticality Noted Date Comments Doxycycline Rash Low 03/06/2010 Medications * Be aware that medications may not be up to date on this document. Alwaysverify current medications with the patient. Medication Sig Dispensed Refills Start Date End Date Status montelukast (SINGULAIR) 4 MG chew tablet Take 4 mg by mouth daily. 03/06/2010 Active acetaminophen (TYLENOL) 160 MG/5ML SOLN solution Take 11.5 mL by mouth every 4 hours as needed for Fever and Pain. 1 mL 0 03/12/2010 Active Active Problems No known active problems Social [...] 11.44 ) 03/12/2010 5:48 AM C DT Qfnxht-mhx-Omhotq Percentile 73.76% 03/12/2010 5 :48 AM CDT Growth Chart: CDC (Girls, 2- 20 Years) Body Mass Index 16.6 03/12/2010 5:48 AM CDT Body Mass Index Percentile 80.68% 03/12/2010 5:4 8 AM CDT Growth Chart: CDC (Girls, 2- 20 Years) Plan of Treatment Health Maintenance Due Date Last Done Comments HIV SCREENING 07/12/2019 HPV VACCINE (1 - 3-dose series) 07/12/2019 CHLAMYDIA/GONORRHEA SCREENING 2020 HEPATITIS C SCREENING 07/07/2022 DEPRESSION SCREENING 05/09/2023 DTAP/TDAP/TD VACCINES (1 - Tdap) 07/12/2023 HEPATITIS B VACCINE (1 of 3 - 19+ 3-dose series) 07/12/2023 COVID-19 VACCINE (1 - 2023-2 5 season) 2024 INFLUENZA VACCINE (#1) 2024 ZOSTER VACCINE (1 of 2) 2054 HIB VACCINE Aged Out No longer eligi ble based on patient's age to complete this topic MENINGOCOCCAL VACCINE Aged Out No jesus shauna eligible based on patient's age to complete this topic PNEUMOCOCCAL VACCINE Aged Out No long er eligible based on patient's age to complete this topic Care Teams Sample Coordinator Relationship Specialty Start Date End Date Jayne Maguire, TOWER LOADER OPERATOR-MANAGER APPLIED [address] [place] [address] PCP - General Nurse Practitioner Family 12/03/19
--- OUTSIDE RECORDS SUMMARY | 2024-05-10 03:23 | XMS_ITS | Encounter Summary ---
Author Organization [facility] Address [address] [place] [address]. [place], [place] [id number] [place] [address] Care Team Providers Care Sagger Maker Name Role Phone Jayne Maguire [facility] Primary Care Provider + Encounter Details Date Type Department Care Team (Latest Contact Info) Description 04/08/2021 Travel Social History Tobacco Use Types Packs/Day Years Used Date Smoking Tobacco: Never Smokeless Tobacco: Never Alcohol Use Standard Drinks/Week Comments Yes 0 (1 standard drink = 0.6 oz pur e alcohol) occasionally Comments Unknown Sex and Gender Information Value Date Recorded Sex Assigned at Not on file Legal Sex Female 5:51 PM MEDICAL RECORDS SPECIALIST Gender Identity Not on file Sexual Orientation Not on file COVID-19 Exposure Response Date Recorded In the last month, have you been in contact with someone who was confirmed or suspected to have Coronavirus / COVID-19? No / Unsure 04/08/2021 7:21 AM MEDICAL RECORDS SPECIALIST documented as of this encounter Plan of Treatment Not on file documented as of this encounter Visit Diagnoses Not on filedocumented in this encounter Additional Health Concerns Infection Onset Date Last Indicated Resolved Time COVID-19 Rule Out 04/08/2021 04/08/2021 04/08/2021 8:51 PM MEDICAL RECORDS SPECIALIST documented as of this encounter Care Teams Sagger Maker Relationship Specialty Start Date End Date Jayne Maguire [facility] [address] [place] [phone] PCP - General NURSE PRACTITIONER 04/16/19 documented as of this encounter
--- OUTSIDE RECORDS SUMMARY | 2024-05-10 03:23 | XMS_ITS | Referral Summary ---
Author Organization [facility] Address [address] [facility] [place] [address] Care Team Providers Care Bank Appraiser Name Role Phone Jayne Maguire Avinash VALDES-BOILERMAKER LOFTSMAN Primary Care Provider Source Comments [facility],non-owned Affiliates and Associated Physician Practices is amultiple site organization consisting of ambulatory clinics and hospital sitesin [place], [place], [place] and [place]. This disclosure is being madepursuant to the Care Everywhere program and may not contain all information available regarding this patient. Last updated 18.[facility] Allergies Active Allergy Reactions Criticality Noted Date [...] 11.44 ) 03/12/2010 5:48 AM C DT Jdifct-wac-Ckbyuz Percentile 73.76% 03/12/2010 5 :48 AM CDT Growth Chart: CDC (Girls, 2- 20 Years) Body Mass Index 16.6 03/12/2010 5:48 AM CDT Body Mass Index Percentile 80.68% 03/12/2010 5:4 8 AM CDT Growth Chart: [facility] [place] (Girls, 2- 20 Years) Plan of Treatment Not on file Care Teams Bank Appraiser Relationship Specialty Start Date End Date Jayne Maguire, GOLD CUTTER-BOILERMAKER LOFTSMAN [address] [place] [address] PCP - General Nurse Practitioner Family 12/03/19
--- OUTSIDE RECORDS SUMMARY | 2024-05-10 03:23 | XMS_ITS | Encounter Summary ---
Author Organization [facility] Address [address] [place] [address]. [place] [address] [place] [address] Care Team Providers Care Tour Manager Name Role Phone Jayne Maguire [facility] Primary Care Provider + Encounter Details Date Type Department Care Team (Late st Contact Info) Description 04/08/2021 Orders Only [facility] [address] [place] [address] Milli Henson, DAVID [address] [place] [address] Social History Tobacco Use Types Packs/Day Years Used Date Smoking Tobacco: Never Smokeless Tobacco: Never Alcohol Use Standard Drinks/Week Comments Yes 0 (1 standard drink = 0.6 oz pur e alcohol) occasionally Comments Unknown Sex and Gender Information Value Date Recorded Sex Assigned at Not on file Legal Sex Female 5:51 PM SHUFFLE BOARD OPERATOR Gender Identity Not on file Sexual Orientation Not on file COVID-19 Exposure Response Date Recorded In the last month, have you been in contact with someone who was confirmed or suspected to have Coronavirus / COVID-19? No / Unsure 04/08/2021 7:21 AM SHUFFLE BOARD OPERATOR documented as of this encounter Plan of Treatment Not on file documented as of this encounter Results * CORONAVIRUS (COVID 19) PCR (04/08/2021 7:32 AM SHUFFLE BOARD OPERATOR) SPEC DESCRIPTION NASAL 04/08/20 7:31 AM SHUFFLE BOARD OPERATOR [facility] CORONAVIRUS SARS COV 2 PCR (RESP) NEGATIVE NEGATIVE 04/08/2021 8:51 PM SHUFFLE BOARD OPERATOR [facility] Comment: THE SARS-CoV-2 TEST HAS BEEN AUTHORIZED BY THE FDA UNDER AN EUA FOR USE BY AUTHORIZED LABORATORIES. PERFORMED BY NUCLEIC ACID AMPLIFICATION PCR FIRST TEST NO 04/08/2021 7:31 AM SHUFFLE BOARD OPERATOR [facility] EMPLOYED IN HEALTHCARE NO 04/08/2021 7:31 AM SHUFFLE BOARD OPERATOR [facility] SYMPTOMATIC DEFINED BY CDC YES 04/08/2021 7:31 AM SHUFFLE BOARD OPERATOR [facility] DATE OF SYMPTOM ONSET 2021041004/08/2021 7:31 AM SHUFFLE BOARD OPERATOR [facility] HOSPITALIZATION STATUS NO 04/08/2021 7:31 AM SHUFFLE BOARD OPERATOR [facility] PATIENT IN ICU NO 04/08/2021 7:31 AM SHUFFLE BOARD OPERATOR [facility] RESIDENT OF [facility] NO 04/08/2021 7:31 AM SHUFFLE BOARD OPERATOR [facility] NOT 04/08/2021 7:31 AM SHUFFLE BOARD OPERATOR [facility] NASAL STRUCTURE / Unknown 04/08/2021 7:32 AM SHUFFLE BOARD OPERATOR Milli Henson NP MICROBIOLOGY - GENERAL ORDERAB LES Final Result [facility] [address] [place] [address], [facility] [address] [place] [address], documented in this encounter Visit Diagnoses Diagnosis Nasal congestion- Primary Other diseases of nasal cavity and sinuses documented in this encounter Additional Health Concerns Infection Onset Date Last Indicated Resolved Time COVID-19 Rule Out 04/08/2021 04/08/2021 04/08/2021 8:51 PM SHUFFLE BOARD OPERATOR documented as of this encounter Care Teams Tour Manager Relationship Specialty Start Date End Date Jayne Maguire FNP- [facility] [address] [place] [address] PCP - General NURSE PRACTITIONER 04/16/19 documented as of this encounter
--- OUTSIDE RECORDS SUMMARY | 2024-05-10 03:23 | XMS_ITS | Encounter Summary ---
Author Organization [facility] Address [address] [facility] [place] [address] Care Team Providers Care Branch Operations Coordinator Name Role Phone Jayne Maguire Primary Care Provider Encounter Details Date Type Department Care Team (Latest Contact Info) Description 12/03/2019 Travel Social History Tobacco Use Types Packs/Day [...] on file documented as of this encounter Plan of Treatment Not on file documented as of this encounter Visit Diagnoses Not on filedocumented in this encounter Care Teams Branch Operations Coordinator Relationship Specialty Start Date End Date Jayne Maguire APRN-CNP [address] [place] [phone] PCP - General Nurse Practitioner Family 12/03/19 documented as of this encounter
--- OUTSIDE RECORDS SUMMARY | 2024-05-10 03:24 | XMS_ITS | Encounter Summary ---
Author Organization [facility] Address [address] [place] [address]. [place] [address] [place] [address] Care Team Providers Care Engineer Conductor Name Role Phone Unavailable Primary Care Provider Unavailabl e Encounter Details Date Type Department Care Team (Late st Contact Info) Description 02/25/2005 Abstract [facility] [address] [place] [address] Tariq Newberry MD [address] [address] Social History Tobacco Use Types Packs/Day Years Used Date Smoking Tobacco: Never Assessed Comments Unknown Sex and Gender Information Value Date Recorded Sex Assigned at Not on file Legal Sex Female 5:51 PM TECHNICAL EDITOR Gender Identity Not on file Sexual Orientation Not on file documented as of this encounter Plan of Treatment Not on file documented as of this encounter Visit Diagnoses Not on filedocumented in this encounter
--- OUTSIDE RECORDS SUMMARY | 2024-05-10 03:24 | XMS_ITS | Encounter Summary ---
Author Organization [facility] Address [address] [place] [address]. [place] [address] [place] [address] Care Team Providers Care Ammonia Print Operator Name Role Phone Unavailable Primary Care Provider Unavailabl e Encounter Details Date Type Department Care Team (Late st Contact Info) Description 12/17/2009 Abstract [facility] [address] [place] [address] [place] [address] Geovanny Reinoso MD [address] [place] [address] Social History Tobacco Use Types Packs/Day Years Used Date Smoking Tobacco: Never Assessed Comments Unknown Sex and Gender Information Value Date Recorded Sex Assigned at Not on file Legal Sex Female 5:51 PM BRIM BLOCKER Gender Identity Not on file Sexual Orientation Not on file documented as of this encounter Plan of Treatment Not on file documented as of this encounter Visit Diagnoses Diagnosis Toxic effect of venom documented in this encounter
--- OUTSIDE RECORDS SUMMARY | 2024-05-10 03:24 | XMS_ITS | Encounter Summary ---
Author Organization [facility] Address [address] [place] [address]. [place], [place] [address] [place] [address] Care Team Providers Care Dobby Loom Chain Pegger Name Role Phone Jayne Maguire [facility] Primary Care Provider + Reason for Visit * Reason Onset Date Comments School Excuse 04/16/2019 Encounter Details Date Type Department Care Team (Late st Contact Info) Description 04/16/2019 Telephone [place] [id number] Rea Yost RN School Excuse Social History Tobacco Use Types Packs/Day Years Used Date Smoking Tobacco: Never Smokeless Tobacco: Never Alcohol Use Standard Drinks/Week Comments Yes 0 (1 standard drink = 0.6 oz pur e alcohol) occasionally Comments Unknown Sex and Gender Information Value Date Recorded Sex Assigned at Not on file Legal Sex Female 5:51 PM BUSINESS PERFORMANCE ANALYST Gender Identity Not on file Sexual Orientation Not on file documented as of this encounter Progress Notes * Rea Yost RN - 04/16/2019 11:49 AM CST ----- Message from Alley George sent at 04/16/2019 10:12 AM BUSINESS PERFORMANCE ANALYST ----- Patient needs a school note for her appt today please School note written for patient. Mother aware. NESS PERFORMANCE ANALYST NESS PERFORMANCE ANALYST documented in this encounter Plan of Treatment Not on file documented as of this encounter Visit Diagnoses Not on filedocumented in this encounter Care Teams Dobby Loom Chain Pegger Relationship Specialty Start Date End Date [facility] [address] [place] [phone] PCP - General NURSE PRACTITIONER 04/16/19 documented as of this encounter
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
--- OUTSIDE RECORDS SUMMARY | 2024-05-10 03:24 | XMS_ITS | Encounter Summary ---
Author Organization [facility] Address [address] [place] [address]. [place] [address] [place] [address] Care Team Providers Care Vice Principal Name Role Phone Unavailable Primary Care Provider Unavailabl e Encounter Details Date Type Department Care Team (Late st Contact Info) Description 10/18/2014 Abstract [facility] [address] [place] [address] Social History Tobacco Use Types Packs/Day Years Used Date Smoking Tobacco: Never Assessed Comments Unknown Sex and Gender Information Value Date Recorded Sex Assigned at Not on file Legal Sex Female 5:51 PM NURSE TRANSITIONAL Gender Identity Not on file Sexual Orientation Not on file documented as of this encounter Plan of Treatment Not on file documented as of this encounter Visit Diagnoses Diagnosis Open wound of forehead Open wound of forehead, without mention of complication documented in this encounter
--- OUTSIDE RECORDS SUMMARY | 2024-05-10 03:24 | XMS_ITS | Encounter Summary ---
Author Organization [facility] Address [address] [place] [address]. [place] [address] [place] [address] Care Team Providers Care Land Commissioner Name Role Phone Unavailable Primary Care Provider Unavailabl e Encounter Details Date Type Department Care Team (Late st Contact Info) Description [address] [facility] [address] [place] [address] Darnell Gayle MD [address] [place] [address] Social History Tobacco Use Types Packs/Day Years Used Date Smoking Tobacco: Never Assessed Comments Unknown Sex and Gender Information Value Date Recorded Sex Assigned at Not on file Legal Sex Female 5:51 PM BRAND COORDINATOR Gender Identity Not on file Sexual Orientation Not on file documented as of this encounter Plan of Treatment Not on file documented as of this encounter Visit Diagnoses Not on filedocumented in this encounter
--- OUTSIDE RECORDS SUMMARY | 2024-05-10 03:24 | XMS_ITS | Encounter Summary ---
Author Organization [facility] Address [address] [place] [address]. [place] [address] [place] [address] Care Team Providers Care Gasser Machine Operator Name Role Phone Unavailable Primary Care Provider Unavailabl e Encounter Details Date Type Department Care Team (Late st Contact Info) Description 06/24/[address] [facility] [address] [place] [address] Prabha Gomez MD [address] [place] [phone] Social History Tobacco Use Types Packs/Day Years Used Date Smoking Tobacco: Never Assessed Comments Unknown Sex and Gender Information Value Date Recorded Sex Assigned at Not on file Legal Sex Female 5:51 PM FAMILY MEDICINE PHYSICIAN ASSISTANT Gender Identity Not on file Sexual Orientation Not on file documented as of this encounter Plan of Treatment Not on file documented as of this encounter Visit Diagnoses Diagnosis Fever due to unspecified condition documented in this encounter
--- OUTSIDE RECORDS SUMMARY | 2024-05-10 03:24 | XMS_ITS | Encounter Summary ---
Author Organization [facility] Address [address] [place] [address]. [place] [address] [place] [address] Care Team Providers Care Carbon Paste Mixer Operator Name Role Phone Jayne Maguire [facility] Primary Care Provider + Reason for Referral * Physical Medicine (Routine) - Closed Specialty Diagnoses / Procedures Referred By Shannan pantoja Referred To Contact PHYSICAL THERAPY Diagnoses Hip strain, right, initial encounter Rubina Cevallos [facility] [address] [place] [address] Phone: tel: fax: Referral ID Status Reason Start Date Expiration Date V isits Requested Visits Authorized [id number] Closed Physical Therapy 04/16/2019 05/16/2020 1 1 PLANT AGENT Reason for Visit * Reason Comments Hip Pain RIGHT Encounter Details Date Type Department Care Team (Late st Contact Info) Description 04/16/2019 9:15 AM BULK PLANT AGENT Office Visit [facility] [address] [address] Rubina Cevallos [facility] [address] [place] [address] Tasia Saldana APRN [address] [place] [address] Hip Pain (RIGHT) Social History Tobacco Use Types Packs/Day Years Used Date Smoking Tobacco: Never Smokeless Tobacco: Never Alcohol Use Standard Drinks/Week Comments Yes 0 (1 standard drink = 0.6 oz pur e alcohol) occasionally Comments Unknown Sex and Gender Information Value Date Recorded Sex Assigned at Not on file Legal Sex Female 5:51 PM BULK PLANT AGENT Gender Identity Not on file Sexual Orientation Not on file documented as of this encounter Last Filed Vital Signs Vital Sign Reading Time Taken Comments Blood Pressure - - Pulse - - Temperature - - Respiratory Rate - - Oxygen Saturation - - Inhaled Oxygen Concentration - - Weight 66.2 kg (146 lb) 04/16/2019 9:37 AM BULK PLANT AGENT Height 170.2 cm (5' 7 ) 04/16/2019 9:37 AM BULK PLANT AGENT Body Mass Index 22.87 04/16/2019 9:37 AM BULK PLANT AGENT Body Mass Index Percentile 79.84% 04/16/2019 9:3 7 AM BULK PLANT AGENT Growth Chart: [facility] (Girls, 2- 20 Years) documented in this encounter Progress Notes * Tasia Saldana, TRESTLE MECHANIC - 04/16/2019 9:30 AM CST Chief Complaint: Hip Pain (RIGHT) History of Present Illness: Yaa Layne is a 13-year-old female who presents to the office for Hip Pain (RIGHT) Patient states pain with onset of several months (summer 2018). Patient denies any injury to area. Patient states pain is in lateral hip and radiates up back and below buttocks. Patient states leg goes numb after sitting for a long period of time. She states difficulty using stairs. She has taken Ibuprofen and used Lidocaine patches in past with no relief. She does not use any assistive devices. She saw a chiropractor for adjustment and states that made things worse. ROS: See HPI for pertinent positives Problem List: Patient Active Problem List Diagnosis ??? Hip strain, right, initial encounter History: Past Medical History: Diagnosis Date ??? Known health problems: none Past Surgical History: Procedure Laterality Date ??? NONE No family history on file. No family status information on file. Social History Socioeconomic History ??? Marital status: Single Spouse name: Not on file ??? Number of children: Not on file ??? Years of education: Not on file ??? Highest education level: Not on file Occupational History ??? Not on file Social Needs ??? Financial resource strain: Not on file ??? Food insecurity: Worry: Not on file Inability: Not on file ??? Transportation needs: Medical: Not on file Non-medical: Not on file Tobacco Use ??? Smoking status: Never Smoker ??? Smokeless tobacco: Never Used Substance and Sexual Activity ??? Alcohol use: Yes Comment: occasionally ??? Drug use: Not on file ??? Sexual activity: Not on file Lifestyle ??? Physical activity: Days per week: Not on file Minutes per session: Not on file ??? Stress: Not on file Relationships ??? Social connections: Talks on phone: Not on file Gets together: Not on file Attends mandaeism service: Not on file Active member of club or organization: Not on file Attends meetings of clubs or organizations: Not on file Relationship status: Not on file ??? Intimate partner violence: Fear of current or ex partner: Not on file Emotionally abused: Not on file Physically abused: Not on file Forced sexual activity: Not on file Other Topics Concern ??? Not on file Social History Narrative ??? Not on file Medications: Current Outpatient Medications: ??? medroxyPROGESTERone 150 MG/ML injection, INJECT 1ML INTRAMUSCULARLY FOR 1 DOSE STOP SPRINTEC, Disp: , Rfl: 0 Allergies Allergen Reactions ??? Codeine Hyperactive ??? Sulfa Antibiotics Rash Objective: Body mass index is 22.87 kg/m??. Last Recorded Weight 04/16/19 0937 Weight: 66.2 kg (146 lb) Physical exam: Constitutional: Alert and in no acute distress. Neurological: The patient was oriented to person, place, and time. Eyes: The sclera and conjunctiva were normal ENT: Hearing was normal. Neck: The appearance of the neck was normal. Cardiovascular: Normal pulses. Pulmonary: No respiratory distress. Skin: No injuries or skin lesion. Musculoskeletal: Right hip demonstrates minimal lateral hip tenderness with palpation, good quad, Negative straight leg raise, negative Brisa, no tenderness to lumbar spine, No groin pain with hip rotation, palpable pedal pulse, No limp. Results: X-ray of the right hip today reviewed and reveals minimal pelvic tilt to the right, no fractures, dislocations, or other acute bony abnormalities Assessment: Encounter Diagnose(s) ICD-10-CM ICD-9-CM SNOMED CT(R) 1. Hip strain, right, initial encounter S76.011A 843.9 STRAIN OF FLEXOR MUSCLE OF HIP AMB REFERRAL TO PHYSICAL THERAPY Plan: Patient symptoms and examination are most consistent with a hip strain. I have recommended evaluation and treatment by physical therapy. I have also recommended Tylenol or ibuprofen as needed for pain and inflammation. She will follow-up in 4 weeks for reevaluation. She continues to have pain we may need to consider an MRI of the right hip. Follow up: Return in about 4 weeks (around 05/14/2019). TASIA SALDANA APRN PLANT AGENT documented in this encounter Plan of Treatment Scheduled Referrals Name Type Priority Associated Diagnoses Orde r Schedule Ambulatory referral to Physical Therapy Referral Routine Hip strain, right, initial encounter Ordered: 04/16/2019 documented as of this encounter Visit Diagnoses Diagnosis Hip strain, right, initial encounter- Primary documented in this encounter Care Teams Carbon Paste Mixer Operator Relationship Specialty Start Date End Date Jayne Maguire, ANALYTICAL DATA SCIENTIST- [address] [phone] PCP - General NURSE PRACTITIONER 04/16/19 documented as of this encounter
--- OUTSIDE RECORDS SUMMARY | 2024-05-10 03:24 | XMS_ITS | Encounter Summary ---
Author Organization [facility] Address [address] [place] [address]. [place] [address] [place] [address] Care Team Providers Care Body And Fender Mechanic Name Role Phone Unavailable Primary Care Provider Unavailabl e Encounter Details Date Type Department Care Team (Late st Contact Info) Description 08/01/2005 Abstract [facility] [address] [place] [address] Nicholas Gayle MD [address] [place] [address] Social History Tobacco Use Types Packs/Day Years Used Date Smoking Tobacco: Never Assessed Comments Unknown Sex and Gender Information Value Date Recorded Sex Assigned at Not on file Legal Sex Female 5:51 PM GOLF MANAGER Gender Identity Not on file Sexual Orientation Not on file documented as of this encounter Plan of Treatment Not on file documented as of this encounter Visit Diagnoses Not on filedocumented in this encounter
--- OUTSIDE RECORDS SUMMARY | 2024-05-10 03:24 | XMS_ITS | Encounter Summary ---
Author Organization [facility] Address [address] [place] [address]. [place] [address] [place] [address] Care Team Providers Care Dirt Bike Mechanic Name Role Phone Unavailable Primary Care Provider Unavailabl e Encounter Details Date Type Department Care Team (Late st Contact Info) Description 07/16/[address] [facility] [address] [place] [address] Prabha Gomez MD [address] [place] [phone] Social History Tobacco Use Types Packs/Day Years Used Date Smoking Tobacco: Never Assessed Comments Unknown Sex and Gender Information Value Date Recorded Sex Assigned at Not on file Legal Sex Female 5:51 PM ICU NURSE Gender Identity Not on file Sexual Orientation Not on file documented as of this encounter Plan of Treatment Not on file documented as of this encounter Visit Diagnoses Diagnosis Family history of diabetes mellitus documented in this encounter
--- OUTSIDE RECORDS SUMMARY | 2024-05-10 03:24 | XMS_ITS | Encounter Summary ---
Author Organization [facility] Address [address] [place] [address]. 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 No / Unsure 12/04/2019 10:09 AM CDT documented as of this encounter Plan of Treatment Not on file documented as of this encounter Visit Diagnoses Not on filedocumented in this encounter Care Teams Nodulizer Relationship Specialty Start Date End Date Jayne Maguire [facility] [address] [place] [phone] PCP - General NURSE PRACTITIONER 04/16/19 documented as of this encounter
--- OUTSIDE RECORDS SUMMARY | 2024-05-10 03:24 | XMS_ITS | Encounter Summary ---
Author Organization [facility] Address [address] [place] [address]. [place] [address] [place] [address] Care Team Providers Care District Leader Name Role Phone Jayne Maguire [facility] Primary Care Provider + Reason for Visit * Reason Comments Therapy Report (SCAN) Encounter Details Date Type Department Care Team ([facility] Contact Info) Description 12/06/2019 Scan [facility] [address] [place] [address] Scanned, Documents Therapy Report (SCAN) Social History Tobacco Use Types Packs/Day Years Used Date Smoking Tobacco: Never Smokeless Tobacco: Never Alcohol Use Standard Drinks/Week Comments Yes 0 (1 standard drink = 0.6 oz pur e alcohol) occasionally Comments Unknown Sex and Gender Information Value Date Recorded Sex Assigned at Not on file Legal Sex Female 5:51 PM 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
--- OUTSIDE RECORDS SUMMARY | 2024-05-10 03:24 | XMS_ITS | Encounter Summary ---
Author Organization [facility] Address [address] [place] [address]. [place] [address] [place] [address] Care Team Providers Care Machine Castings Plasterer Name Role Phone Jyane Maguire [facility] Primary Care Provider + Encounter Details Date Type Department Care Team (Latest Contact Info) Description 04/08/2021 7:20 AM LINE MAINTAINER - 04/08/2021 11:59 PM LINE MAINTAINER Hospital Encounter [facility] [address] [place] [address] Milli Henson, DAVID [address] [place] [id number] Discharge Disposition: Home or Self Care (Routine Discharge) Social History Tobacco Use Types Packs/Day Years Used Date Smoking Tobacco: Never Smokeless Tobacco: Never Alcohol Use Standard Drinks/Week Comments Yes 0 (1 standard drink = 0.6 oz pur e alcohol) occasionally Comments Unknown Sex and Gender Information Value Date Recorded Sex Assigned at Not on file Legal Sex Female 5:51 PM LINE MAINTAINER Gender Identity Not on file Sexual Orientation Not on file COVID-19 Exposure Response Date Recorded In the last month, have you been in contact with someone who was confirmed or suspected to have Coronavirus / COVID-19? No / Unsure 04/08/2021 7:21 AM LINE MAINTAINER documented as of this encounter Medications at Time of Discharge fexofenadine 180 MG tablet Take 180 mg by mouth daily. medroxyPROGESTE Jeremiah 150 MG/ML injection INJECT 1ML INTRAMUSCULARLY FOR 1 DOSE STOP SPRINTEC 0 03/01/2019 methylPREDNISol one, MCKINLEY, 4 MG tabletIndicatio ns:Contusion of left forearm, initial encounter,Numbn ess and tingling in left hand 4 mg Oral Tablet Therapy Pack. Follow package directions 1 each 12/04/2019 omeprazole 20 MG capsule Take 1 capsule by mouth as needed. 11/27/2019 documented as of this encounter Plan of Treatment Not on file documented as of this encounter Procedures Procedure Name Priority Date/Time Associated Diagnosis Comments CORONAVIRUS (COVID 19) Routine 04/08/2021 7:32 AM LINE MAINTAINER Nasal congestion documented in this encounter Results * CORONAVIRUS (COVID 19) PCR (04/08/2021 7:32 AM LINE MAINTAINER) SPEC DESCRIPTION NASAL 04/08/20 7:31 AM LINE MAINTAINER [facility] CORONAVIRUS SARS COV 2 PCR (RESP) NEGATIVE NEGATIVE 04/08/2021 8:51 PM LINE MAINTAINER [facility] Comment: THE SARS-CoV-2 TEST HAS BEEN AUTHORIZED BY THE FDA UNDER AN EUA FOR USE BY AUTHORIZED LABORATORIES. PERFORMED BY NUCLEIC ACID AMPLIFICATION PCR FIRST TEST NO 04/08/2021 7:31 AM LINE MAINTAINER [facility] EMPLOYED IN HEALTHCARE NO 04/08/2021 7:31 AM LINE MAINTAINER [facility] SYMPTOMATIC DEFINED BY CDC YES 04/08/2021 7:31 AM LINE MAINTAINER [facility] DATE OF SYMPTOM ONSET [id number]/08/2021 7:31 AM LINE MAINTAINER [facility] HOSPITALIZATION STATUS NO 04/08/2021 7:31 AM LINE MAINTAINER [facility] PATIENT IN ICU NO 04/08/2021 7:31 AM LINE MAINTAINER [facility] 04/08/2021 7:31 AM LINE MAINTAINER [facility] NOT 04/08/2021 7:31 AM LINE MAINTAINER [facility] NASAL STRUCTURE / Unknown 04/08/2021 7:32 AM LINE MAINTAINER us Milli Henson NP MICROBIOLOGY - GENERAL ORDERAB LES Final Result [facility] [address] [place] [address], [facility] [place] [address], documented in this encounter Visit Diagnoses Diagnosis Nasal congestion Other diseases of nasal cavity and sinuses documented in this encounter Additional Health Concerns Infection Onset Date Last Indicated Resolved Time COVID-19 Rule Out 04/08/2021 04/08/2021 04/08/2021 8:51 PM LINE MAINTAINER documented as of this encounter Care Teams Machine Castings Plasterer Relationship Specialty Start Date End Date Jayne Maguire, VISUAL EFFECTS ARTIST- [address] [phone] PCP - General NURSE PRACTITIONER 04/16/19 documented as of this encounter
--- OUTSIDE RECORDS SUMMARY | 2024-05-10 03:24 | XMS_ITS | Encounter Summary ---
Author Organization [facility] Address [address] [place] [address]. [place] [address] [place] [address] Care Team Providers Care Booster Station Operator Name Role Phone Unavailable Primary Care Provider Unavailabl e Encounter Details Date Type Department Care Team (Late st Contact Info) Description 02/24/[address] [facility] [address] [place] [address] Prabha Gomez MD [address] [place] [phone] Social History Tobacco Use Types Packs/Day Years Used Date Smoking Tobacco: Never Assessed Comments Unknown Sex and Gender Information Value Date Recorded Sex Assigned at Not on file Legal Sex Female 5:51 PM POINTER HELPER Gender Identity Not on file Sexual Orientation Not on file documented as of this encounter Plan of Treatment Not on file documented as of this encounter Visit Diagnoses Diagnosis Other laboratory examination documented in this encounter
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
--- OUTSIDE RECORDS SUMMARY | 2024-05-10 03:24 | XMS_ITS | Encounter Summary ---
Author Organization [facility] Address [address] [place] [address]. [place], [place] [address] [place] [address] Care Team Providers Care Roll Form Operator Name Role Phone Jayne Maguire [facility] Primary Care Provider + Encounter Details Date Type Department Care Team (Latest Contact Info) Description 12/04/2019 10:10 AM CDT - 12/04/2019 11:59 PM CDT Hospital Encounter [facility] [address] [place] [address] Danilo Munguia MD [address] [place] [address] Discharge Disposition: Home or Self Care (Routine Discharge) Social History Tobacco Use Types Packs/Day Years Used Date Smoking Tobacco: Never Smokeless Tobacco: Never Alcohol Use Standard Drinks/Week Comments Yes 0 (1 standard drink = 0.6 oz pur e alcohol) occasionally Comments Unknown Sex and Gender Information Value Date Recorded Sex Assigned at Not on file Legal Sex Female 5:51 PM RHINESTONE SETTER Gender Identity Not on file Sexual Orientation Not on file COVID-19 Exposure Response Date Recorded In the last month, have you been in contact with someone who was confirmed or suspected to have Coronavirus / COVID-19? No / Unsure 12/04/2019 10:09 AM CDT documented as of this encounter Medications at [...] Procedure Name Priority Date/Time Associated Diagnosis Comments XR WRIST LT MIN 3V Routine 12/04/2019 10 :21 AM CDT Left wrist pain XR FOREARM LT 2V Routine 12/04/2019 10:2 1 AM CDT Left forearm pain documented in this encounter Results * XR FOREARM LT [...] in this encounter Visit Diagnoses Diagnosis Left wrist pain Pain in joint, forearm Left forearm pain Pain in limb documented in this encounter Care Teams Roll Form Operator Relationship Specialty Start Date End Date Jayne Maguire, EXCHANGE MECHANIC- [address] [phone] PCP - General NURSE PRACTITIONER 04/16/19 documented as of this encounter
--- OUTSIDE RECORDS SUMMARY | 2024-05-10 03:24 | XMS_ITS | Encounter Summary ---
Author Organization [facility] Address [address] [place] [address]. [place] [address] [place] [address] Care Team Providers Care Seam Stayer Name Role Phone Jayne Maguire [facility] Primary Care Provider + Encounter Details Date Type Department Care Team (Late st Contact Info) Description 10/14/2018 Abstract [facility] [address] [place] [address] , Generic Conversion, Social History Tobacco Use Types Packs/Day Years Used Date Smoking Tobacco: Never Assessed Comments Unknown Sex and Gender Information Value Date Recorded Sex Assigned at Not on file Legal Sex Female 5:51 PM SIGN HANGER Gender Identity Not on file Sexual Orientation Not on file documented as of this encounter Plan of Treatment Not on file documented as of this encounter Visit Diagnoses Not on filedocumented in this encounter Additional Health Concerns Infection Onset Date Last Indicated Resolved Time COVID-19 Rule Out 04/08/2021 04/08/2021 04/08/2021 8:51 PM SIGN HANGER documented as of this encounter Care Teams Seam Stayer Relationship Specialty Start Date End Date Jayne Maguire [facility] [address] [phone] PCP - General NURSE PRACTITIONER 04/16/19 documented as of this encounter
--- OUTSIDE RECORDS SUMMARY | 2024-05-10 03:24 | XMS_ITS | Encounter Summary ---
Author Organization [facility] Address [facility] [address] [place] [address] Care Team Providers Care Central Control Room Operator Name Role Phone Unavailable Primary Care Provider Unavailabl e Encounter Details Date Type Department Care Team (Late st Contact Info) Description 04/12/2019 Orders Only [facility] [address] [place], [place] [id number] Rubina Cevlalos, [facility] [address] [facility] [place] [address] Social History Tobacco Use Types Packs/Day Years Used Date Smoking Tobacco: Never Assessed Comments Unknown Sex and Gender Information Value Date Recorded Sex Assigned at Not on file Legal Sex Female 5:51 PM HEALTH AND SAFETY MANAGER Gender Identity Not on file Sexual Orientation Not on file documented as of this encounter Plan of Treatment Not on file documented as of this encounter Results * XR HIP RT 2V (04/16/2019 9:52 AM HEALTH AND SAFETY MANAGER) Anatomical Region Laterality Modality Hip Radiographic Sylvia ging 04/16/2019 9:40 AM HEALTH AND SAFETY MANAGER Impressions 04/16/2019 9:45 AM HEALTH AND SAFETY MANAGER IMPRESSION: 1. Minimal pelvic tilt to the right. 2. Normal radiographic appearance right hip joint. 3. Potential right side pelvic hernia. If further evaluation is desired, CT could be considered. Interpreted By: Salinas Shearer MD, 04/16/2019 9:40 AM Narrative 04/16/2019 9:45 AM HEALTH AND SAFETY MANAGER Examination: XR HIP RT 2V Exam time: 04/16/2019 9:32 AM Clinical history: Right hip pain for approximately 5 months. No known injury. Comparison: No prior exam Technique: AP weightbearing view. Lateral view right hip. Findings: There is minimal pelvic tilt to the right. Risser 4 iliac crest pelvic apophyseal classification. Sacroiliac joints appear unremarkable. Visualized sacral ala appear intact. Pubic symphysis appears normal. No evidence of fracture or focal bone abnormality involving the pelvis. Single AP view of the left hip joint appears normal. Right hip joint space appears normal. No evidence of fracture or focal bone abnormality involving the right acetabulum or right proximal femur. No evidence of abnormal soft tissue densities. Metallic density projects in the midabdomen on the AP view and would be most consistent with umbilical piercing. There is focal lucency which projects over the right superior and inferior pubic rami and extends inferiorly into the right perineal region. The appearance would be suggestive of bowel within a inguinal or femoral hernia. If further imaging evaluation is desired CT of the pelvis could be considered. Procedure Note Salinas Shearer MD - 04/16/2019 Examination: XR HIP RT 2V Exam time: 04/16/2019 9:32 AM Clinical history: Right hip pain for approximately 5 months. No known injury. Comparison: No prior exam Technique: AP weightbearing view. Lateral view right hip. Findings: There is minimal pelvic tilt to the right. Risser 4 iliaccrest pelvic apophyseal classification. Sacroiliac joints appear unremarkable. Visualized sacral ala appear intact. Pubic symphysis appears normal. No evidence of fracture or focal bone abnormality involving the pelvis.Single AP view of the left hip joint appears normal. Right hip joint space appears normal. No evidence of fracture or focalbone abnormality involving the right acetabulum or right proximal femur. No evidence of abnormal soft tissue densities. Metallic density projects in the midabdomen on the AP view and would be most consistent with umbilical piercing. There is focal lucency which projects over the right superior and inferior pubic rami and extends inferiorly into the right perineal region. The appearance would be suggestive of bowel within a inguinal or femoral hernia. If furtherimaging evaluation is desired CT of the pelvis could be considered. IMPRESSION: 1. Minimal pelvic tilt to the right. 2. Normal radiographic appearance right hip joint. 3. Potential right side pelvic hernia. If further evaluation is desired,CT could be considered. Interpreted By: Salinas Shearer MD, 04/16/2019 9:40 AM us Rubina Cevallos PHYSICAL EDUCATION INSTRUCTOR-BC GENERAL IMAGING Final Resu lt documented in this encounter Visit Diagnoses Diagnosis Right hip pain- Primary Pain in joint, pelvic region and thigh Right hip pain Pain in joint, pelvic region and thigh documented in this encounter
--- OUTSIDE RECORDS SUMMARY | 2024-05-10 03:24 | XMS_ITS | Encounter Summary ---
Author Organization [facility] Address [address] [place] [address]. [place] [address] [place] [address] Care Team Providers Care President Finance Company Name Role Phone Jayne Maguire [facility] Primary Care Provider + Encounter Details Date Type Department Care Team (Late st Contact Info) Description 04/16/2019 9:23 AM DRYWALL STRIPPER - 04/16/2019 11:59 PM DRYWALL STRIPPER Hospital Encounter [facility] [address] [place] [address] Rubina Cevallos, [facility] [address] [place] [address] Tasia Masters, MUSEUM ASSISTANT [address] [place] [address] Discharge Disposition: Home or Self Care (Routine Discharge) Social History Tobacco Use Types Packs/Day Years Used Date Smoking Tobacco: Never Smokeless Tobacco: Never Alcohol Use Standard Drinks/Week Comments Yes 0 (1 standard drink = 0.6 oz pur e alcohol) occasionally Comments Unknown Sex and Gender Information Value Date Recorded Sex Assigned at Not on file Legal Sex Female 5:51 PM DRYWALL STRIPPER Gender Identity Not on file Sexual Orientation Not on file documented as of this encounter Medications at Time of Discharge medroxyPROGESTE Jeremiah 150 MG/ML injection INJECT 1ML INTRAMUSCULARLY FOR 1 DOSE STOP SPRINTEC 0 03/01/2019 documented as of this encounter Plan of Treatment Not on file documented as of this encounter Procedures Procedure Name Priority Date/Time Associated Diagnosis Comments XR HIP RT 2V Routine 04/16/2019 9:52 AM DRYWALL STRIPPER Right hip pain documented in this encounter Results * XR HIP RT 2V (04/16/2019 9:52 AM DRYWALL STRIPPER) Anatomical Region Laterality Modality Hip Radiographic Sylvia ging 04/16/2019 9:40 AM DRYWALL STRIPPER Impressions 04/16/2019 9:45 AM DRYWALL STRIPPER IMPRESSION: 1. Minimal pelvic tilt to the right. 2. Normal radiographic appearance right hip joint. 3. Potential right side pelvic hernia. If further evaluation is desired, CT could be considered. Interpreted By: Salinas Shearer MD, 04/16/2019 9:40 AM Narrative 04/16/2019 9:45 AM DRYWALL STRIPPER Examination: XR HIP RT 2V Exam time: [...] By: Salinas Shearer MD, 04/16/2019 9:40 AM Rubina Cevallos FLIGHT OPERATIONS DISPATCH CLERK-BC GENERAL IMAGING Final Resu lt documented in this encounter Visit Diagnoses Diagnosis Right hip pain Pain in joint, pelvic region and thigh documented in this encounter Care Teams President Finance Company Relationship Specialty Start Date End Date Jayne Maguire, FLIGHT OPERATIONS DISPATCH CLERK-BC [address] [place] [phone] PCP - General NURSE PRACTITIONER 04/16/19 documented as of this encounter
--- OUTSIDE RECORDS SUMMARY | 2024-05-10 03:24 | XMS_ITS | Encounter Summary ---
Author Organization [facility] Address [address] [place] [address]. 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
--- OUTSIDE RECORDS SUMMARY | 2024-05-10 03:24 | XMS_ITS | Encounter Summary ---
Author Organization [facility] Address [address] [place] [address]. [place] [address] [place] [address] Care Team Providers Care Graduating Machine Operator Name Role Phone Unavailable Primary Care Provider Unavailabl e Encounter Details Date Type Department Care Team (Late st Contact Info) Description 02/28/[address] [facility] [address] [facility] [place] [address] Social History Tobacco Use Types Packs/Day Years Used Date Smoking Tobacco: Never Assessed Comments Unknown Sex and Gender Information Value Date Recorded Sex Assigned at Not on file Legal Sex Female 5:51 PM BANK ANALYST Gender Identity Not on file Sexual Orientation Not on file documented as of this encounter Plan of Treatment Not on file documented as of this encounter Visit Diagnoses Not on filedocumented in this encounter
--- OUTSIDE RECORDS SUMMARY | 2024-05-10 03:24 | XMS_ITS | Encounter Summary ---
Author Organization [facility] Address [address] [place] [address]. 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
--- OUTSIDE RECORDS SUMMARY | 2024-05-10 03:24 | XMS_ITS | Encounter Summary ---
Author Organization [facility] Address [address] [place] [address]. 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
== END 2024-05-03 04:45 | disposition home or self-care (01) ==
PROVIDERS: Emergency Provider Emergency Medicine; PCP Family Medicine
DX: R11.2 Nausea with vomiting, unspecified (principal); R19.7 Diarrhea, unspecified; E87.6 Hypokalemia; E86.9 Volume depletion, unspecified; F41.9 Anxiety disorder, unspecified; F32.A Depression, unspecified; Z20.822 Contact with and (suspected) exposure to COVID-19
CPT/HCPCS: 36415; 80053; 81003; 83690; 84703; 85027; 87637; 96361; 96374; 99284; A9270; J2405; J7030

== ENCOUNTER 2024-06-13 15:54 | Outpatient (CLI) | payer OTHER, SELFPAY ==
--- NOTE | ~2024-06-13 | XR_ITS ---
EXAMINATION: XR chest 2V DATE: 06/13/2024 16:06 INDICATION: Wheezing TECHNIQUE: PA and lateral views of the chest were obtained. COMPARISON: None FINDINGS: The lungs are clear with no focal airspace opacities, pulmonary edema, pleural effusion or pneumothor ax. The cardiomediastinal silhouette is normal. Visualized bones and soft tissues are unremarkable. IMPRESSION: 1. No acute cardiopulmonary disease. Reviewed, dictated and finalized at location A. RIALS PLANNER/PRODUCTION PLANNER
== END 2024-06-13 15:55 | disposition home or self-care (01) ==
LOC: GOSHIMG 15:55
PROVIDERS: PCP Nurse Practitioner Family; Visit Provider Nurse Practitioner Family
DX: R06.2 Wheezing (principal)
CPT/HCPCS: 71046

== ENCOUNTER 2024-09-20 06:46 | Emergency (ER) | payer OTHER, SELFPAY ==
--- NOTE | ~2024-09-20 | XR_ITS ---
Cervical Spine: AP, lateral, open-mouth views Clinical History: Pain Findings: There is mild reversal of the normal cervical lordosis. The vertebral bodies and posterior elements appear intact. The intervertebral disc spaces are well maintained. Pre-vertebral soft tiss ues are unremarkable. Impression: Mild reversal of the normal cervical lordosis, otherwise unremarkable exam.. Reviewed, dictated and finalized at location . Impression: Mild reversal of the normal cervical lordosis, otherwise unremarkable exam..
--- NOTE | ~2024-09-20 | XR_ITS ---
Lumbosacral Spine: AP and lateral views Clinical History: Pain Findings: The normal lordotic curve is maintained. The vertebral bodies and posterior elements are i ntact. The intervertebral disc spaces are preserved. The sacroiliac joints are normally outlined. Impression: No significant abnormality. Reviewed, dictated and finalized at [facility]. Impression: No significant abnormality.
[2024-09-20 06:48] VITALS: BP 127/80; PULSE 68; RESP 18; TEMP 37.1; O2SAT 97
--- OUTSIDE RECORDS SUMMARY | 2024-09-20 06:48 | XMS_ITS | Clinical Summary ---
Author Organization [facility] Address [facility] [place] [address] Care Team Providers Care Vacuum Tank Tender Name Role Phone Jayne Maguire [facility] Primary Care Provider + Allergies Active Allergy [...] 180 mg by mouth daily. 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 Gender Identity Not on file Sexual Orientation [...] Mass Index 25.84 12/04/2019 10:22 AM CDT Plan of Treatment Health Maintenance Due Date Last Done Comments Hepatitis B Vaccines (3 of 3 - 3-dose series) 12/21/2005 09/29/2005, 08/31/2005 Annual Physical 07/12/2007 DTaP, Tdap and Td Vaccines (5 - Tdap) 07/12/2015 09/04/2009, 09/29/2005, 08/31/2005, Additional history exists Meningococcal B Vaccine (1 of 2 - Standard) 2020 Hepatitis C 2022 COVID-19 Vaccine ( season) 2024 HPV Vaccines Completed 09/14/2018, 06/16/2017 Meningococcal Vaccine Aged Out No jesus shauna eligible based on patient's age to complete this topic Pneumococcal Vaccine: Pediatrics (0 to 5 Years) and At-Risk Patients (6 to 49 Years) Aged Out No longer eligible based on patient's age to complete this topic RSV Immunizations Under 20 Months Aged Out No longer eligible based on patient's age to complete this topic Insurance [facility] Care Teams Vacuum Tank Tender Relationship Specialty Start Date End Date Jayne Maguire, LANDSCAPE MANAGEMENT TECHNICIAN- [address] [place] [address] PCP - General NURSE PRACTITIONER 04/16/19
--- OUTSIDE RECORDS SUMMARY | 2024-09-20 06:48 | XMS_ITS | Encounter Summary ---
Author Organization [facility] Address [address] [place] [address] Care Team Providers Care Ticket Manager Name Role Phone Jayne Maguire [facility] Primary Care Provider + Encounter Details Date Type Department Care Team (Late st Contact Info) Description 10/14/2018 Abstract SFL CONVERSION [address] [place] [address] , Generic Conversion, Social History Tobacco Use Types Packs/Day Years Used Date Smoking Tobacco: Never Assessed Comments Unknown Sex and Gender Information Value Date Recorded Sex Assigned at Not on file Legal Sex Female 5:51 PM SPOOLER RUBBER STRAND Gender Identity Not on file Sexual Orientation Not on file documented as of this encounter Plan of Treatment Not on file documented as of this encounter Visit Diagnoses Not on filedocumented in this encounter Additional Health Concerns Infection Onset Date Last Indicated Resolved Time COVID-19 Rule Out 04/08/2021 04/08/2021 04/08/2021 8:51 PM SPOOLER RUBBER STRAND documented as of this encounter Care Teams Ticket Manager Relationship Specialty Start Date End Date Jayne Maguire [facility] [address] [place] [phone] PCP - General NURSE PRACTITIONER 04/16/19 documented as of this encounter
--- OUTSIDE RECORDS SUMMARY | 2024-09-20 06:48 | XMS_ITS | Clinical Summary ---
Author Organization [facility] [employer] Address [address] [facility] [place] [address] Care Team Providers Care Wrong Address Clerk Name Role Phone Jayne Maguire Avinash VALDES-CARDIOLOGY FELLOW Primary Care Provider Source Comments [facility] [employer],non-owned Affiliates and Associated Physician Practices is amultiple site organization consisting of ambulatory clinics and hospital sitesin [place], [place], [place] and [place]. This disclosure is being madepursuant to the Care Everywhere program and may not contain all information available regarding this patient. Last updated 18.[facility] [employer] Allergies Active Allergy Reactions Criticality Noted Date Comments Doxycycline Rash Low 03/06/2010 Medications * Be aware that medications may not be up to date on this document. Alwaysverify current medications with the patient. 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 Gender Identity Not on file Sexual Orientation Not on file Last Filed Vital Signs Vital Sign Reading Time Taken Comments Blood Pressure 110/64 03/12/2010 8:14 AM CDT Pulse 96 03/12/2010 8:44 AM CDT Temperature 36.8 C (98.2 F) 03/12/2010 8:14 AM CDT Respiratory Rate 24 03/12/2010 8:44 AM CDT Oxygen Saturation 98% 03/12/2010 8:00 AM CDT Inhaled Oxygen Concentration - - Weight 24.1 kg (53 lb 2.1 oz) 03/12/2010 5:48 AM CDT Height 120.5 cm (3' 11.44 ) 03/12/2010 5:48 AM C DT Body Mass Index 16.6 03/12/2010 5:48 AM CDT Plan of Treatment Health Maintenance Due Date Last Done Comments HIV SCREENING 07/12/2019 HPV VACCINE (1 - 3-dose series) 07/12/2019 CHLAMYDIA/GONORRHEA SCREENING 2020 MENINGOCOCCAL (Group B) VACC INE SHARED DECISION-MAKING (1 of 2 - Standard) 2020 HEPATITIS C SCREENING 07/07/2022 DTAP/TDAP/TD VACCINES (1 - Tdap) 07/12/2023 HEPATITIS B VACCINE (1 of 3 - 19+ 3-dose series) 07/12/2023 COVID-19 VACCINE (1 - 2023-2 5 season) 2024 DEPRESSION SCREENING 05/09/2024 INFLUENZA VACCINE (Season Ended) 2025 ZOSTER VACCINE (1 of 2) 2054 HIB VACCINE Aged Out No longer eligi ble based on patient's age to complete this topic MENINGOCOCCAL GROUPS A/C/Y/W VACCINE Aged Out No longer eligible b ased on patient's age to complete this topic PNEUMOCOCCAL VACCINE Aged Out No long er eligible based on patient's age to complete this topic Insurance [employer] Care Teams Wrong Address Clerk Relationship Specialty Start Date End Date Jayne Maguire APRN-CARDIOLOGY FELLOW [address] [place] [address] PCP - General Nurse Practitioner Family 12/03/19
--- NOTE | 2024-09-20 07:02 | ED.BACK ---
HPI - Back Pain/Injury General Chief Complaint: Back Pain/Injury Stated Complaint: neck and back pain Time Seen by Provider: 09/20/24 06:54 Source: patient Mode of arrival: ambulatory Limitations: no limitations History of Present Illness HPI Narrative: 19-year-old female with a history of anxiety, GERD presents to the ED with a 2 week history of -- neck pain which radiates down right paraspinal region -- lower back pain. no radiation of the pain. No paresthesias of lower extremities. No history of trauma. 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 MD elicited complaint: back pain Pertinent past history: prior back pain Onset (ago): week(s) ( Two weeks) Timing: constant Quality: aching Location: lumbar spine ( cervical spine pain) Radiation: other ( no radiation of the lumbar pain. The cervical pain radiates down the right side of the neck.) Exacerbating factors: movement Relieving factors: none Associated symptoms: denies other symptoms Work related injury: No Related Data Allergies Allergy/AdvReac Type Severity Reaction Status Date / Time codeine Allergy Unknown Verified 09/20/24 07:13 Sulfa (Sulfonamide Allergy Unknown Verified 09/20/24 07:13 Antibiotics) sulfamethoxazole (From Allergy Unknown Verified 09/20/24 07:13 Bactrim) trimethoprim (From Bactrim) Allergy Unknown Verified 09/20/24 07:13 Sulfonamides Allergy Intermediate Unknown Uncoded 09/20/24 07:13 Review of Systems Review of Systems: All systems reviewed & are unremarkable except as noted in HPI and below PMFSH Past Medical History Medical History Seasonal allergies Wrist injury Anxiety GERD (gastroesophageal reflux disease) Surgical History Surgical History H/O eye surgery Family History Family History Father Diabetes mellitus Hypothyroidism Hyperlipidemia Sibling Depression Ankylosing spondylitis Seronegative rheumatoid arthritis Asthma Anxiety Mother Depression Anxiety Grandparent Cancer Alcoholism Social History Social History Social History: Caffeine-soda Smoking status: Never smoker Alcohol intake: never Substance use: former Substance use type: marijuana Lack of Transportation: No Lack of Food: Never True Current Housing: I Have Housing Concerned About Future Housing: No Difficulty Paying Gas/Electric Bills: No Difficulty Paying for Meds: No Currently Unemployed: No Education: High School Diploma/GED Difficulty w/ Childcare or Family Care: No Living arrangements: with family Occupation/Education: student Gender identity (if verbalized by the patient): Female Agree to blood products: Yes Exam Narrative: Vitals are stable. Afebrile Const: General: no acute distress Nutritional Appearance: well nourished Orientation/consciousness: patient oriented x3 Limitations: no limitations HENMT: Head: normal to inspection Ears: external ears normal Face/Nose/Sinus: Normal external nose present Face and sinus: normal facial exam Mouth: Yes Normal oral and palatal mucosa present Throat: posterior oropharynx normal Eyes: Conjunctivae: conjunctivae normal Pupils: Equal, round and reactive pupils present EOM: EOMs intact bilaterally Direct Ophthalmoscopy: no photophobia Neck: Neck: normal visual inspection, no lymphadenopathy and no meningeal signs Other: no cervical spine tenderness. Tenderness of the right paraspinal region Chest: Chest palpation & inspection: normal inspection of the chest Resp: Effort & Inspection: normal respiratory effort Auscultation: clear to auscultation bilaterally Cardio: Rate: regular rate Rhythm: regular rhythm GI: Auscultation: normal bowel sounds Other: tenderness/rigidity/rebound : General: Yes no CVA tenderness Back/Spine/Pelvis: Back: no CVA tenderness Other: no lumbar spine tenderness. straight leg raising test is negative on both legs. Skin: General skin exam: normal color Rashes: no rashes Wounds: no wounds Neuro: General: patient oriented x3, moves all extremities, no meningeal signs and no focal motor deficits Cranial nerves: Yes Nystagmus not present Speech: normal speech Gait exam (Neuro): Normal gait present Extrem: General: normal to inspection and no clubbing, cyanosis or edema Psych: Mental Status: mental status grossly normal Affect: normal affect Attitude: cooperative Course Vital Signs Vital signs: Vital Signs Temperature 37.1 C 09/20/24 06:48 Pulse Rate 68 09/20/24 06:48 Respiratory Rate 18 09/20/24 06:48 Blood Pressure 127/80 09/20/24 06:48 Pulse Oximetry 97 09/20/24 06:48 Oxygen Delivery Room Air 09/20/24 06:48 Temperature 37.0 C 09/20/24 08:10 Pulse Rate 75 09/20/24 08:10 Respiratory Rate 16 09/20/24 08:10 Blood Pressure 134/89 09/20/24 08:10 Pulse Oximetry 100 09/20/24 08:10 Oxygen Delivery Room Air 09/20/24 08:10 MDM - Back Pain/Injury Lab Data Labs: Lab Results 09/20/24 Range/Units 07:11 Urine Test Negative Discharge Plan Discharge Clinical Impression: Cervical radiculopathy, Lumbar radiculopathy Patient Disposition: Home Condition: Stable Instructions: Antibiotic Form, Cervical Radiculopathy (ED), Back Pain (ED), Lower Back Exercises (ED) Additional Instructions: recommend follow-up with primary care physician within 3 to 5 days , and recommend Tylenol extra-strength as needed. Patient Language: Czech Prescriptions: No Action norethindrone ac-eth estradiol [05/28 (21)] 1-20 mg-mcg tablet 1 tablet PO DAILY Qty: 63 2RF Airsupra 90-80 mcg/actuation HFA aerosol inhaler 2 inh inhalation QID Qty: 5.9 0RF omeprazole 20 mg capsule,delayed release(DR/EC) 20 mg PO DAILY Qty: 90 1RF escitalopram oxalate [Lexapro] 10 mg tablet 15 mg PO DAILY 90 Days Qty: 135 1RF hydroxyzine HCl 25 mg tablet 25 mg PO QHS Qty: 90 1RF Follow-up/Referrals: Alexsandra Hardy DO [Primary Care Provider] - Time of Disposition: 08:03
[2024-09-20 07:18] LABS: Pregnancy On Board Control Positive; Urine Pregnancy Test Negative
--- OUTSIDE RECORDS SUMMARY | 2024-09-20 07:55 | XMS_ITS | Clinical Summary ---
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
--- OUTSIDE RECORDS SUMMARY | 2024-09-20 07:55 | XMS_ITS | Clinical Summary ---
Author Organization [facility] [employer] Address [address] [place] [address] Care Team Providers Care De Icer Finisher Name Role Phone Jayne Maguire Avinash VALDES-HEALTH UNDERWRITER Primary Care Provider Source Comments [facility] [employer],non-owned Affiliates and Associated Physician Practices is amultiple site organization consisting of ambulatory clinics and hospital sitesin [place], [place], [place] and [place]. This disclosure is being madepursuant to the Care Everywhere program and may not contain all information available regarding this patient. Last updated 18.[facility] [employer] Allergies Active Allergy Reactions Criticality Noted Date [...] on file Legal Sex Female 9:29 AM CHILD DEVELOPMENT DIRECTOR Gender Identity Not on file Sexual Orientation [...] complete this topic Insurance [employer] Care Teams De Icer Finisher Relationship Specialty Start Date End Date Jayne Maguire APRN-HEALTH UNDERWRITER [address] [place] [address] PCP - General Nurse Practitioner Family 12/03/19
--- OUTSIDE RECORDS SUMMARY | 2024-09-20 07:55 | XMS_ITS | Encounter Summary ---
Author Organization [facility] Address [address] [place] [address] Care Team Providers Care Olericulturist Name Role Phone Jayne Maguire [facility] Primary Care Provider + Encounter Details Date Type Department Care Team (Late st Contact Info) Description 10/14/2018 Abstract SFL CONVERSION [address] [place] [address] , Generic Conversion, Social History Tobacco Use Types Packs/Day Years Used Date Smoking Tobacco: Never Assessed Comments Unknown Sex and Gender Information Value Date Recorded Sex Assigned at Not on file Legal Sex Female 5:51 PM SAFETY INSTRUCTOR Gender Identity Not on file Sexual Orientation Not on file documented as of this encounter Plan of Treatment Not on file documented as of this encounter Visit Diagnoses Not on filedocumented in this encounter Additional Health Concerns Infection Onset Date Last Indicated Resolved Time COVID-19 Rule Out 04/08/2021 04/08/2021 04/08/2021 8:51 PM SAFETY INSTRUCTOR documented as of this encounter Care Teams Olericulturist Relationship Specialty Start Date End Date Jayne Maguire [facility] [address] [place] [phone] PCP - General NURSE PRACTITIONER 04/16/19 documented as of this encounter
[2024-09-20 08:10] VITALS: BP 134/89; PULSE 75; RESP 16; TEMP 37; O2SAT 100
== END 2024-09-20 08:20 | disposition home or self-care (01) ==
PROVIDERS: Internal Medicine Critical Care Medicine; Emergency Provider Emergency Medicine; PCP Family Medicine
DX: M54.12 Radiculopathy, cervical region (principal); M54.16 Radiculopathy, lumbar region; K21.9 Gastro-esophageal reflux disease without esophagitis
CPT/HCPCS: 72040; 72100; 81025; 99283

== ENCOUNTER 2024-09-30 03:23 | Emergency (ER) | payer OTHER, SELFPAY ==
--- NOTE | ~2024-09-30 | XR_ITS ---
HISTORY: POSTERIOR RIGHT SHOULDER PAIN AFTER MOVING BOXES TODAY COMPARISON: None TECHNIQUE: 3 views of the right shoulder were performed FINDINGS: No acute fracture. The glenohumeral joint space is maintained. Distention of the acromioclavicular joint space with upsloping of the distal clavicle, findings sugge sting acromioclavicular joint injury. The visualized portion of the adjacent right lung is clear. The humeral head is well seated within the glenoid fossa. IMPRESSION: No acute fracture or anterior dislocation. Findings suggesting acromioclavicular joint injury. Reviewed, dictated and finalized at location A.
[2024-09-30 03:25] VITALS: BP 127/85; PULSE 86; RESP 18; TEMP 36.7; O2SAT 98
--- OUTSIDE RECORDS SUMMARY | 2024-09-30 03:25 | XMS_ITS | Clinical Summary ---
Author Organization [facility] [employer] Address [address] [place] [address] Care Team Providers Care Tenant Selector Name Role Phone Jayne Maguire Avinash VALDES-RETAIL ADVERTISING EXECUTIVE Primary Care Provider Source Comments [facility] [employer],non-owned Affiliates and Associated Physician Practices is amultiple site organization consisting of ambulatory clinics and hospital sitesin [place], [place], [place] and [place]. This disclosure is being madepursuant to the Care Everywhere program and may not contain all information available regarding this patient. 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
--- NOTE | 2024-09-30 03:39 | ED_ITS ---
HPI - Extremity Injury (Upper) General Chief Complaint: Extremity Injury, Upper Stated Complaint: upper extremity injury Time Seen by Provider: 09/30/24 03:38 Source: patient Mode of arrival: ambulatory Limitations: no limitations History of Present Illness HPI narrative: this is a 19-year-old female with no significant past medical history presents with right shoulder pain after she was lifting heavy boxes there is no direct injury no falls no numbness or tingling has good range of motion. complaint: injury to: right Onset (ago): hour(s) Other Extremity Injury: Right: shoulder ( shoulder pain) Handedness: right Place: home Severity: moderate Severity scale (1-10): 6 Relieving factors: immobilization Exacerbating factors: movement of extremity Context: other Related Data Allergies Allergy/AdvReac Type Severity Reaction Status Date / Time codeine Allergy Unknown Verified 09/30/24 03:30 Sulfa (Sulfonamide Allergy Unknown Verified 09/30/24 03:30 Antibiotics) sulfamethoxazole (From Allergy Unknown Verified 09/30/24 03:30 Bactrim) trimethoprim (From Bactrim) Allergy Unknown Verified 09/30/24 03:30 Sulfonamides Allergy Intermediate Unknown Uncoded 09/30/24 03:30 Review of Systems Review of Systems: All systems reviewed & are unremarkable except as noted in HPI and below PMFSH Past Medical History Medical History Seasonal allergies Wrist injury Anxiety GERD (gastroesophageal reflux disease) Surgical History Surgical History H/O eye surgery Family History Family History Father Diabetes mellitus Hypothyroidism Hyperlipidemia Sibling Depression Ankylosing spondylitis Seronegative rheumatoid arthritis Asthma Anxiety Mother Depression Anxiety Grandparent Cancer Alcoholism Social History Social History Social History: Caffeine-soda Smoking status: Never smoker Alcohol intake: never Substance use: former Substance use type: marijuana Lack of Transportation: No Lack of Food: Never True Current Housing: I Have Housing Concerned About Future Housing: No Difficulty Paying Gas/Electric Bills: No Difficulty Paying for Meds: No Currently Unemployed: No Education: High School Diploma/GED Difficulty w/ Childcare or Family Care: No Living arrangements: with family Occupation/Education: student Gender identity (if verbalized by the patient): Female Agree to blood products: Yes Exam Const: General: healthy appearing and no acute distress Orientation/consciousness: patient oriented x3 Limitations: no limitations Neck: Neck: normal visual inspection, no lymphadenopathy and no meningeal signs Chest: Chest palpation & inspection: normal inspection of the chest Resp: Effort & Inspection: normal respiratory effort Auscultation: clear to auscultation bilaterally Cardio: Rate: regular rate Rhythm: regular rhythm GI: GI Palp: Yes Soft to palpation Skin: General skin exam: normal color Rashes: no rashes Wounds: no wounds Neuro: General: patient oriented x3 and moves all extremities Extrem: General: normal to inspection Other: Tenderness in the bicipital groove otherwise has good range of motion with active and passive movement Course Course Emergency Course: x-ray right shoulder shows no acute fractures or dislocations, 60mg IM Toradol administered for pain relief. Vital Signs Vital signs: Vital Signs Temperature 36.7 C 09/30/24 03:25 Pulse Rate 86 09/30/24 03:25 Respiratory Rate 18 09/30/24 03:25 Blood Pressure 127/85 09/30/24 03:25 Pulse Oximetry 98 09/30/24 03:25 Oxygen Delivery Room Air 09/30/24 03:25 Temperature 36.7 C 09/30/24 03:25 Pulse Rate 86 09/30/24 03:25 Respiratory Rate 18 09/30/24 03:25 Blood Pressure 127/85 09/30/24 03:25 Pulse Oximetry 98 09/30/24 03:25 Oxygen Delivery Room Air 09/30/24 03:25 Critical Care Time Critical Care Time Critical Care Time: No Discharge Plan Discharge Clinical Impression: Sprain of right shoulder Qualifiers: Encounter type: initial encounter Shoulder sprain type: unspecified sprain Qualified Code(s): S43.401A - Unspecified sprain of right shoulder joint, initial encounter Patient Disposition: Home Condition: Stable Instructions: Antibiotic Form, Rotator Cuff Injury (ED) Additional Instructions: advised patient to take medication as prescribed follow with primary care physician if symptoms persist or worsen. Patient Language: Tamazight Prescriptions: New naproxen 500 mg tablet 500 mg PO BID PRN (Reason: pain) Qty: 14 0RF No Action norethindrone ac-eth estradiol [05/28 (21)] 1-20 mg-mcg tablet 1 tablet PO DAILY Qty: 63 2RF Airsupra 90-80 mcg/actuation HFA aerosol inhaler 2 inh inhalation QID Qty: 5.9 0RF omeprazole 20 mg capsule,delayed release(DR/EC) 20 mg PO DAILY Qty: 90 1RF escitalopram oxalate [Lexapro] 10 mg tablet 15 mg PO DAILY 90 Days Qty: 135 1RF hydroxyzine HCl 25 mg tablet 25 mg PO QHS Qty: 90 1RF Follow-up/Referrals: Alexsandra Hardy DO [Primary Care Provider] -
[2024-09-30] MEDS: KETOROLAC (*BKC) 60 MG/2 ML VIAL IM (03:43)
--- OUTSIDE RECORDS SUMMARY | 2024-09-30 03:58 | XMS_ITS | Clinical Summary ---
Author Organization [facility] [employer] Address [address] [facility] [address] Care Team Providers Care Supervisor Speech Name Role Phone Jayne Maguire Avinash VALDES-CASH REGISTER MECHANIC Primary Care Provider Source Comments [facility] [employer],non-owned Affiliates and Associated Physician Practices is amultiple site organization consisting of ambulatory clinics and hospital sitesin [place], [place], [place] and [place]. This disclosure is being madepursuant to the Care Everywhere program and may not contain all information available regarding this patient. 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
== END 2024-09-30 04:14 | disposition home or self-care (01) ==
LOC: CHSED 03:57
PROVIDERS: Emergency Provider Emergency Medicine; PCP Family Medicine
DX: S43.401A Unspecified sprain of right shoulder joint, initial encounter (principal); X50.0XXA Overexertion from strenuous movement or load, initial encounter; Y92.009 Unspecified place in unspecified non-institutional (private) residence as the place of occurrence of the external cause
CPT/HCPCS: 73030; 96372; 99283; J1885

== ENCOUNTER 2024-10-02 10:54 | Outpatient (CLI) | payer OTHER, SELFPAY ==
--- OUTSIDE RECORDS SUMMARY | 2024-10-02 10:59 | XMS_ITS | Clinical Summary ---
Author Organization [facility] Address [address] [facility] [place] [place] [address] Care Team Providers Care Staple Fiber Washer Name Role Phone Jayne Maguire Avinash VALDES-SCHOOL GUARD Primary Care Provider Source Comments [facility],non-owned Affiliates and Associated Physician Practices is amultiple site organization consisting of ambulatory clinics and hospital sitesin [place], [place], [place] and [place]. This disclosure is being madepursuant to the Care Everywhere program and may not contain all information available regarding this patient. Last updated 18.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
[2024-10-02 11:35] LABS: Hematocrit 43.1 % (35.0-49.0); Mean Corpuscular HGB Conc 32.5 g/dL (32-36); Mean Corpuscular Hemoglobin 27.3 pg (27.0-31.0); Mean Corpuscular Volume 84.2 fL (78.0-102.0); Platelet Count Result 313 K/mm3 (150-420); Red Blood Count 5.12 M/mm3 (4.20-5.40); Red Cell Distribution Width 11.9 % (11.6-14.4); White Blood Count 5.5 K/mm3 (4.8-10.8)
[2024-10-02 12:03] LABS: Alanine Aminotransferase 16 U/L (6-35); Albumin Level 4.7 g/dL (3.5-5.1); Alkaline Phosphatase 66 U/L (38-126); Anion Gap 7 mmol/L (4-12); Aspartate Amino Transferase 23 U/L (14-36); Bilirubin,Total 0.7 mg/dL (0.2-1.3); Blood Urea Nitrogen 14 mg/dL (7-17); Calcium 9.5 mg/dL (8.4-10.2); Carbon Dioxide 21 mmol/L (22-30); Chloride 109 mmol/L (98-107); Estimated Glomerular Filt Rate > 60; Glucose 77 mg/dL (65-110); Osmolality Calculated 283 mOsm/kg (285-295); Potassium 4.2 mmol/L (3.4-5.0); Sodium 137 mmol/L (137-145); Total Protein 7.6 g/dL (6.3-8.2)
[2024-10-02 12:25] LABS: Rheumatoid Factor Screen Negative (Negative)
[2024-10-02 12:33] LABS: Thyroid Stimulating Hormone 0.407 uIU/mL (0.465-4.680)
[2024-10-02 12:36] LABS: Erythrocyte Sedimentation Rate 10 mm/hr (0-15)
[2024-10-03 08:19] LABS: CRP, High Sensitivity 1.6 mg/L
[2024-10-03 08:58] LABS: ANA Cascade Screen NEGATIVE (NEGATIVE)
== END 2024-10-02 10:55 | disposition home or self-care (01) ==
LOC: CHSLAB 10:56
PROVIDERS: PCP Family Medicine; Visit Provider Family Medicine
DX: F41.9 Anxiety disorder, unspecified (principal); R74.01 Elevation of levels of liver transaminase levels; M25.50 Pain in unspecified joint; Z79.899 Other long term (current) drug therapy; Z83.2 Family history of diseases of the blood and blood-forming organs and certain disorders involving the immune mechanism
CPT/HCPCS: 36415; 80053; 84443; 85027; 85652; 86038; 86141; 86225; 86235; 86364; 86430

== ENCOUNTER 2024-11-14 23:13 | Emergency (ER) | payer OTHER, SELFPAY ==
[2024-11-14 23:14] VITALS: BP 147/64; PULSE 86; RESP 18; O2SAT 100
--- OUTSIDE RECORDS SUMMARY | 2024-11-14 23:15 | XMS_ITS | Clinical Summary ---
Author Organization [facility] Address [address] [place] [address] Care Team Providers Care Dean Of Admissions Name Role Phone Jayne Maguire Avinash VALDES-LATIN PROFESSOR Primary Care Provider Source Comments [facility],non-owned Affiliates and Associated Physician Practices is amultiple site organization consisting of ambulatory clinics and hospital sitesin [place], [place], [place] and [place]. This disclosure is being madepursuant to the Care Everywhere program and may not contain all information available regarding this patient. 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
--- OUTSIDE RECORDS SUMMARY | 2024-11-14 23:15 | XMS_ITS | Encounter Summary ---
Author Organization [facility] Address [address] [place] [id number] Care Team Providers Care Small Arms Artillery Repairer Name Role Phone Jayne Maguire [facility] Primary Care Provider + Encounter Details Date Type Department Care Team (Late st Contact Info) Description 10/14/2018 Abstract SFL CONVERSION [address] [place] [address] , Generic Conversion, Social History Tobacco Use Types Packs/Day Years Used Date Smoking Tobacco: Never Assessed Comments Unknown Sex and Gender Information Value Date Recorded Sex Assigned at Not on file Legal Sex Female 5:51 PM ENGINEERING PROGRAMMER Gender Identity Not on file Sexual Orientation Not on file documented as of this encounter Plan of Treatment Not on file documented as of this encounter Visit Diagnoses Not on filedocumented in this encounter Additional Health Concerns Infection Onset Date Last Indicated Resolved Time COVID-19 Rule Out 04/08/2021 04/08/2021 04/08/2021 8:51 PM ENGINEERING PROGRAMMER documented as of this encounter Care Teams Small Arms Artillery Repairer Relationship Specialty Start Date End Date Jayne Maguire [facility] [address] [place] [phone] PCP - General NURSE PRACTITIONER 04/16/19 documented as of this encounter
--- OUTSIDE RECORDS SUMMARY | 2024-11-14 23:15 | XMS_ITS | Clinical Summary ---
Author Organization [facility] Address [facility] [place] [address] Care Team Providers Care Cell Assembly Pinner Name Role Phone Jayne Maguire [facility] Primary Care Provider + Allergies Active [...] on file Legal Sex Female 5:51 PM AGRICULTURAL PRODUCE SORTER Gender Identity Not on file Sexual Orientation Not on file Last Filed Vital Signs Vital Sign Reading Time Taken Comments Blood Pressure - - Pulse - - Temperature - - Respiratory Rate - - Oxygen Saturation - - Inhaled Oxygen Concentration - - Weight 74.8 kg (165 lb) 12/04/2019 10:22 AM CDT Height 170.2 cm (5' 7) 12/04/2019 10:22 AM CDT Body Mass Index [...] patient's age to complete this topic Insurance [facility] Care Teams Cell Assembly Pinner Relationship Specialty Start Date End Date Jayne Maguire, AGRICULTURAL EDUCATION INSTRUCTOR- [address] [place] [address] PCP - General NURSE PRACTITIONER 04/16/19
--- NOTE | 2024-11-14 23:32 | ED.HA ---
HPI - Headache General Chief Complaint: Headache Stated Complaint: migraine Time Seen by Provider: 11/14/24 23:15 Source: patient Mode of arrival: ambulatory Limitations: no limitations History of Present Illness HPI Narrative: 19 years old white female, history of migraine headache for the last 4 years on average twice a month. Does not take any medicine, did not try to take any medication today. Developed generalized throbbing headache associated with nausea and vomiting in the last 4 hours. Patient had similar headache in the past, but the vomiting is worse than before. She denies any fever, chills, chest pain, shortness of breath, back pain or focal neuro deficit. Patient have strong family history of migraine headache. Headache of anxiety, depression, acid reflux Related Data Allergies Allergy/AdvReac Type Severity Reaction Status Date / Time codeine Allergy Unknown Verified 11/15/24 00:10 Sulfa (Sulfonamide Allergy Unknown Verified 11/15/24 00:10 Antibiotics) sulfamethoxazole (From Allergy Unknown Verified 11/15/24 00:10 Bactrim) trimethoprim (From Bactrim) Allergy Unknown Verified 11/15/24 00:10 Sulfonamides Allergy Intermediate Unknown Uncoded 11/15/24 00:10 Review of Systems Review of Systems: All systems reviewed & are unremarkable except as noted in HPI and below PMFSH Past Medical History Medical History Seasonal allergies Wrist injury Anxiety GERD (gastroesophageal reflux disease) Surgical History Surgical History H/O eye surgery Family History Family History Father Diabetes mellitus Hypothyroidism Hyperlipidemia Sibling Depression Ankylosing spondylitis Seronegative rheumatoid arthritis Asthma Anxiety Mother Depression Anxiety Grandparent Cancer Alcoholism Social History Social History Social History: Caffeine-soda Smoking status: Never smoker Alcohol intake: never Substance use: former Substance use type: marijuana Lack of Transportation: No Lack of Food: Never True Current Housing: I Have Housing Concerned About Future Housing: No Difficulty Paying Gas/Electric Bills: No Difficulty Paying for Meds: No Currently Unemployed: No Education: High School Diploma/GED Difficulty w/ Childcare or Family Care: No Living arrangements: with family Occupation/Education: student Gender identity (if verbalized by the patient): Female Agree to blood products: Yes Exam Narrative: General appearance: Well-developed, well-nourished Skin: Normal color Head: Normocephalic, nontraumatic Eyes: Clear conjunctiva ENT: Oropharynx normal, ears normal, nose normal Neck: Supple, nontender Chest and respiratory: Airway patent, no respiratory distress, no accessory muscle use Heart: Regular rate/rhythm Abdomen: Soft, nontender, no organomegaly, quiet bowel sounds Vascular: Normal peripheral pulses, normal capillary refill. Musculoskeletal: Normal range of motion, nontender back Neurologic: Alert and oriented ?3, PREFORMING MACHINE OPERATOR is normal as tested, no gross motor deficit Course Vital Signs Vital signs: Vital Signs Pulse Rate 86 11/14/24 23:14 Respiratory Rate 18 11/14/24 23:14 Blood Pressure 147/64 H 11/14/24 23:14 Pulse Oximetry 100 11/14/24 23:14 Oxygen Delivery Room Air 11/14/24 23:14 Pulse Rate 86 11/14/24 23:14 Respiratory Rate 18 11/14/24 23:14 Blood Pressure 147/64 H 11/14/24 23:14 Pulse Oximetry 100 11/14/24 23:14 Oxygen Delivery Room Air 11/14/24 23:14 MDM - Headache MDM Narrative Medical decision making narrative: patient presents with migraine headache similar to the past History of anxiety and depression, headache is generalized which does not match with migraine, probably tension headache or probably both Patient received 1 L of normal saline, 30 mg of Toradol IV, 50 mg Benadryl IV, 10 mg of Reglan IV with remarkable improvement Currently patient is pain-free The pt was discharged to home.the pt,s condition upon discharge was fair,education was provided to the pt in reference to the final impression,discharge study results,treatment,prognosis and need for follow up . Differential Diagnosis Differential diagnosis: Likely other ( migraine headache, tension headache, nonspecific headache) Critical Care Time Critical Care Time Critical Care Time: No Discharge Plan Discharge Clinical Impression: Headache Patient Disposition: Home Condition: Improved Instructions: Acute Headache (DC) Additional Instructions: Return if symptoms are worsening , call your family physician for appointment, take to Excedrin as as needed for aches and pain, continue home medications. Patient Language: Micronesian Prescriptions: No Action norethindrone ac-eth estradiol [05/28 (21)] 1-20 mg-mcg tablet 1 tablet PO DAILY Qty: 63 2RF omeprazole 20 mg capsule,delayed release(DR/EC) 20 mg PO DAILY Qty: 90 1RF fexofenadine-pseudoephedrine [Neeru-D 24 Hour] 180-240 mg tablet extended release 24 hr 1 tablet PO DAILY 30 Days Qty: 30 3RF escitalopram oxalate 20 mg tablet 20 mg PO DAILY Qty: 90 1RF Follow-up/Referrals: Alexsandra Hardy DO [Primary Care Provider] -
[2024-11-14] MEDS: SODIUM CHLORIDE 0.9% IV 1,000 ML 999 ML IV CONT (23:42)
[2024-11-14] MEDS: KETOROLAC 30 MG/ML VIAL (*BKC) IV PUSH (23:45)
--- OUTSIDE RECORDS SUMMARY | 2024-11-14 23:45 | XMS_ITS | Clinical Summary ---
Author Organization [facility] Address [address] [facility] [place] [address] Care Team Providers Care Academic Support Specialist Name Role Phone Jayne Maguire Avinash VALDES-ABSORPTION PLANT OPERATOR Primary Care Provider Source Comments [facility],non-owned Affiliates and Associated Physician Practices is amultiple site organization consisting of ambulatory clinics and hospital sitesin [place], [place], [place] and [place]. This disclosure is being madepursuant to the Care Everywhere program and may not contain all information available regarding this patient. 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
--- OUTSIDE RECORDS SUMMARY | 2024-11-14 23:45 | XMS_ITS | Clinical Summary ---
Author Organization [facility] Address [facility] [place] [address] Care Team Providers Care Analytics Director Name Role Phone Jayne Maguire [facility] Primary Care Provider + Allergies Active Allergy [...] on file Legal Sex Female 5:51 PM DIESEL LOCOMOTIVE CRANE OPERATOR Gender Identity Not on file Sexual [...] patient's age to complete this topic Insurance [facility] Care Teams Analytics Director Relationship Specialty Start Date End Date Jayne Maguire, BILINGUAL TEACHER ASSISTANT- [address] [place] [address] PCP - General NURSE PRACTITIONER 04/16/19
--- OUTSIDE RECORDS SUMMARY | 2024-11-14 23:45 | XMS_ITS | Encounter Summary ---
Author Organization [facility] Address [address] [place] [address] Care Team Providers Care Senior Microsoft Net Developer Name Role Phone Jayne Maguire [facility] Primary Care Provider + Encounter Details Date Type Department Care Team (Late st Contact Info) Description 10/14/2018 Abstract SFL CONVERSION [address] [place] [address] , Generic Conversion, Social History Tobacco Use Types Packs/Day Years Used Date Smoking Tobacco: Never Assessed Comments Unknown Sex and Gender Information Value Date Recorded Sex Assigned at Not on file Legal Sex Female 5:51 PM CLINICAL PRACTICE CONSULTANT Gender Identity Not on file Sexual Orientation Not on file documented as of this encounter Plan of Treatment Not on file documented as of this encounter Visit Diagnoses Not on filedocumented in this encounter Additional Health Concerns Infection Onset Date Last Indicated Resolved Time COVID-19 Rule Out 04/08/2021 04/08/2021 04/08/2021 8:51 PM CLINICAL PRACTICE CONSULTANT documented as of this encounter Care Teams Senior Microsoft Net Developer Relationship Specialty Start Date End Date Jayne Maguire [facility] [address] [place] [phone] PCP - General NURSE PRACTITIONER 04/16/19 documented as of this encounter
[2024-11-14] MEDS: METOCLOPRAMIDE HCL INJ 10 MG/2 ML VIAL IV PUSH (23:46)
[2024-11-15 01:02] VITALS: BP 128/73; PULSE 80; RESP 18; TEMP 36.1; O2SAT 99
== END 2024-11-15 01:02 | disposition home or self-care (01) ==
PROVIDERS: Emergency Provider Emergency Medicine; PCP Family Medicine
DX: R51.9 Headache, unspecified (principal)
CPT/HCPCS: 96361; 96374; 96375; 99284; J1200; J1885; J2765; J7030

== ENCOUNTER 2024-12-07 02:48 | Emergency (ER) | payer OTHER, SELFPAY ==
--- NOTE | ~2024-12-07 | XR_ITS ---
CHEST RADIOGRAPH CLINICAL HISTORY: COUGH, CHEST CONGESTION . COMPARISON: 06/13/2024 TECHNIQUE: Single portable view of the chest. FINDINGS The cardiothymic silhouette is unremarkable. The lungs are clear. IMPRESSION: No focal infiltrate or effusion. Reviewed, dictated and finalized at location A.
[2024-12-07 02:48] VITALS: BP 152/101; PULSE 96; RESP 18; O2SAT 99
--- NOTE | 2024-12-07 02:50 | PC.NURSE ---
COVID AND STREP SWAB TAKEN DOWN TO LAB
--- OUTSIDE RECORDS SUMMARY | 2024-12-07 02:51 | XMS_ITS | Clinical Summary ---
Author Organization [facility] Address [address] [facility] [place] [address] Care Team Providers Care Auditor Medical Claims Name Role Phone Jayne Maguire Avinash VALDES-SUPERVISOR COMPONENT ASSEMBLER Primary Care Provider Source Comments [facility],non-owned Affiliates and Associated Physician Practices is amultiple site organization consisting of ambulatory clinics and hospital sitesin [place], [place], [place] and [place]. This disclosure is being madepursuant to the Care Everywhere program and may not contain all information available regarding this patient. 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 Gender Identity Not on file Sexual Orientation [...] season) 2024 DEPRESSION SCREENING 05/09/2024 INFLUENZA VACCINE (#1) 2025 ZOSTER VACCINE (1 of 2) 2054 HIB VACCINE Aged Out No longer eligi ble based on patient's age to complete this topic MENINGOCOCCAL GROUPS A/C/Y/W VACCINE Aged Out No longer eligible b ased on patient's age to complete this topic PNEUMOCOCCAL VACCINE Aged Out No long er eligible based on patient's age to complete this topic Insurance AMAN Care Teams Auditor Medical Claims Relationship Specialty Start Date End Date Jayne Maguire APRN-SUPERVISOR COMPONENT ASSEMBLER [address] [place] [address] PCP - General Nurse Practitioner Family 12/03/19
--- OUTSIDE RECORDS SUMMARY | 2024-12-07 02:51 | XMS_ITS | Encounter Summary ---
Author Organization [facility] Address [address] [place] [address] Care Team Providers Care Early Morning Babysitter Name Role Phone Jayne Maguire [facility] Primary Care Provider + Encounter Details Date Type Department Care Team (Late st Contact Info) Description 10/14/2018 Abstract SFL CONVERSION [address] [place] [address] , Generic Conversion, Social History Tobacco Use Types Packs/Day Years Used Date Smoking Tobacco: Never Assessed Comments Unknown Sex and Gender Information Value Date Recorded Sex Assigned at Not on file Legal Sex Female 5:51 PM PARAPROFESSIONAL AIDE TEACHER Gender Identity Not on file Sexual Orientation Not on file documented as of this encounter Plan of Treatment Not on file documented as of this encounter Visit Diagnoses Not on filedocumented in this encounter Additional Health Concerns Infection Onset Date Last Indicated Resolved Time COVID-19 Rule Out 04/08/2021 04/08/2021 04/08/2021 8:51 PM PARAPROFESSIONAL AIDE TEACHER documented as of this encounter Care Teams Early Morning Babysitter Relationship Specialty Start Date End Date Jayne Maguire [facility] [address] [place] [phone] PCP - General NURSE PRACTITIONER 04/16/19 documented as of this encounter
--- OUTSIDE RECORDS SUMMARY | 2024-12-07 02:51 | XMS_ITS | Clinical Summary ---
Author Organization [facility] Address [facility] [place] [address] Care Team Providers Care Collar Runner Name Role Phone Jayne Maguire 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
[2024-12-07 03:30] LABS: Strep Group A RT-PCR NOT DETECTED (Negative)
--- NOTE | 2024-12-07 03:30 | PC.NURSE ---
PATIENT RESTING ON STRETCHER. DENIES ANY NEEDS AT THIS TIME.
[2024-12-07 03:39] LABS: Influenza A QL RT-PCR Negative (Negative); Influenza B QL RT-PCR Negative (Negative); RSV RNA, RT-PCR Negative (Negative); SARS-CoV-2 RNA PCR Negative (Negative)
--- NOTE | 2024-12-07 03:52 | ED_ITS ---
HPI - URI/Sore Throat General Chief Complaint: Upper Respiratory Infection Stated Complaint: Couging/Sore Throat Source: patient Mode of arrival: ambulatory Limitations: no limitations History of Present Illness HPI Narrative: patient presents with nasal congestion and productive cough started yesterday noon. Her boyfriend have similar symptoms. Patient denies any fever, chills, nausea, vomiting or headache. Related Data Allergies Allergy/AdvReac Type Severity Reaction Status Date / Time codeine Allergy Unknown Verified 11/15/24 00:10 Sulfa (Sulfonamide Allergy Unknown Verified 11/15/24 00:10 Antibiotics) sulfamethoxazole (From Allergy Unknown Verified 11/15/24 00:10 Bactrim) trimethoprim (From Bactrim) Allergy Unknown Verified 11/15/24 00:10 Sulfonamides Allergy Intermediate Unknown Uncoded 11/15/24 00:10 Review of Systems Review of Systems: All systems reviewed & are unremarkable except as noted in HPI and below PMFSH Past Medical History Medical History Seasonal allergies Wrist injury Anxiety GERD (gastroesophageal reflux disease) Surgical History Surgical History H/O eye surgery Family History Family History Father Diabetes mellitus Hypothyroidism Hyperlipidemia Sibling Depression Ankylosing spondylitis Seronegative rheumatoid arthritis Asthma Anxiety Mother Depression Anxiety Grandparent Cancer Alcoholism Social History Social History Social History: Caffeine-soda Smoking status: Never smoker Alcohol intake: never Substance use: former Substance use type: marijuana Lack of Transportation: No Lack of Food: Never True Current Housing: I Have Housing Concerned About Future Housing: No Difficulty Paying Gas/Electric Bills: No Difficulty Paying for Meds: No Currently Unemployed: No Education: High School Diploma/GED Difficulty w/ Childcare or Family Care: No Living arrangements: with family Occupation/Education: student Gender identity (if verbalized by the patient): Female Agree to blood products: Yes Exam Narrative: General appearance: Well-developed, well-nourished Skin: Normal color Head: Normocephalic, nontraumatic Eyes: Clear conjunctiva ENT: oropharyngeal erythema, ears normal, stuffed nose Neck: Supple, nontender Chest and respiratory: Airway patent, no respiratory distress, no accessory muscle use Heart: Regular rate/rhythm Abdomen: Soft, nontender, no organomegaly, quiet bowel sounds Vascular: Normal peripheral pulses, normal capillary refill. Musculoskeletal: Normal range of motion, nontender back Neurologic: Alert and oriented ?3, TRAILER BODY ASSEMBLER is normal as tested, no gross motor defi cit Course Vital Signs Vital signs: Vital Signs Pulse Rate 96 12/07/24 02:48 Respiratory Rate 18 12/07/24 02:48 Blood Pressure 152/101 H 12/07/24 02:48 Pulse Oximetry 99 12/07/24 02:48 Oxygen Delivery Room Air 12/07/24 02:48 Pulse Rate 96 12/07/24 02:48 Respiratory Rate 18 12/07/24 02:48 Blood Pressure 152/101 H 12/07/24 02:48 Pulse Oximetry 99 12/07/24 02:48 Oxygen Delivery Room Air 12/07/24 02:48 MDM - URI/Sore Throat MDM Narrative Medical decision making narrative: upper respiratory viral infection and or seasonal allergy Patient tested negative for COVID flu and RSV and strep throat Chest x-ray showed no acute abnormality Discharged on Flonase and Afrin nasal spray Differential Diagnosis Differential diagnosis: Likely upper respiratory infection, viral infection and pharyngitis Medical Records Attestation: I reviewed the patient's medical records. Lab Data Attestation: I reviewed the patient's lab results. Labs: Lab Results 12/07/24 Range/Units 03:00 Influenza A (RT-PCR) Negative (Negative) Influenza B (RT-PCR) Negative (Negative) RSV (RT-PCR) Negative (Negative) SARS-CoV-2 RNA (RT-PCR) Negative (Negative) Group A Strep (PCR) Not detected (Negative) Imaging Data My impression: chest x-ray showed no acute abnormality Critical Care Time Critical Care Time Critical Care Time: No Discharge Plan Discharge Clinical Impression: Acute upper respiratory infection Patient Disposition: Home Condition: Stable Instructions: Upper Respiratory Infection (ED) Additional Instructions: Return if symptoms are worsening , call your family physician for appointment, take Tylenol , ibuprofen as as needed for aches and pain, continue home medications. Patient Language: Romansh Prescriptions: New fluticasone propionate [Flonase Allergy Relief] 50 mcg/actuation spray,suspension 2 spray intranasal DAILY Qty: 36.4 0RF Rx Instructions: administer into each nostril oxymetazoline [Afrin (oxymetazoline)] 0.05 % spray,non-aerosol 2 spray intranasal Q12H PRN (Reason: nasal congestion) 3 Days Qty: 15 0RF No Action omeprazole 20 mg capsule,delayed release(DR/EC) 20 mg PO DAILY Qty: 90 1RF fexofenadine-pseudoephedrine [Neeru-D 24 Hour] 180-240 mg tablet extended release 24 hr 1 tablet PO DAILY 30 Days Qty: 30 3RF escitalopram oxalate 20 mg tablet 20 mg PO DAILY Qty: 90 1RF norethindrone ac-eth estradiol [05/28 (21)] 1-20 mg-mcg tablet 1 tablet PO DAILY Qty: 63 2RF Follow-up/Referrals: Alexsandra Hardy DO [Primary Care Provider] - Stand Alone Forms: Work/School Release IP
[2024-12-07 04:08] VITALS: BP 132/80; PULSE 82; RESP 18; O2SAT 100
== END 2024-12-07 04:08 | disposition home or self-care (01) ==
PROVIDERS: Emergency Provider Emergency Medicine; PCP Family Medicine
DX: J06.9 Acute upper respiratory infection, unspecified (principal); Z20.822 Contact with and (suspected) exposure to COVID-19
CPT/HCPCS: 71045; 87637; 87651; 99283

== ENCOUNTER 2025-04-16 21:14 | Emergency (ER) | payer OTHER, SELFPAY ==
--- OUTSIDE RECORDS SUMMARY | 2025-04-16 21:16 | XMS_ITS | Encounter Summary ---
Author Organization [facility] Address [address] [place] [address] Care Team Providers Care Funeral Home General Manager Name Role Phone Jayne Maguire [facility] Primary Care Provider + Encounter Details Date Type Department Care Team (Late st Contact Info) Description 10/14/2018 Abstract SFL CONVERSION [address] [place] [address] , Generic Conversion, Social History Tobacco Use Types Packs/Day Years Used Date Smoking Tobacco: Never Assessed Comments Unknown Sex and Gender Information Value Date Recorded Sex Assigned at Not on file 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 Gender Identity Not on file Sexual Orientation Not on file documented as of this encounter Plan of Treatment Not on file documented as of this encounter Visit Diagnoses Not on filedocumented in this encounter Additional Health Concerns Infection Onset Date Last Indicated Resolved Time COVID-19 Rule Out 04/08/2021 04/08/2021 04/08/2021 8:51 PM PET CARE WORKER documented as of this encounter Care Teams Funeral Home General Manager Relationship Specialty Start Date End Date Jayne Maguire [facility] [address] [place] [phone] PCP - General NURSE PRACTITIONER 04/16/19 documented as of this encounter
--- NOTE | 2025-04-16 21:40 | ED.HA ---
HPI - Headache General Chief Complaint: Headache Stated Complaint: MIGRAINE Time Seen by Provider: 04/16/25 21:40 History of Present Illness HPI Narrative: 19-year-old white female reports about a 1 year history of migraine headaches. 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 This headache began the 19, has photophobia, phonophobia, nausea, and several episodes of emesis. No recent fever, chills, sinus drainage, sore throat, cough, chest pain, shortness of breath, abdominal pain, diarrhea or constipation, dysuria urgency or frequency Related Data Allergies Allergy/AdvReac Type Severity Reaction Status Date / Time codeine Allergy Unknown Verified 03/12/25 11:53 Sulfa (Sulfonamide Allergy Unknown Verified 03/12/25 11:53 Antibiotics) sulfamethoxazole (From Allergy Unknown Verified 03/12/25 11:53 Bactrim) trimethoprim (From Bactrim) Allergy Unknown Verified 03/12/25 11:53 Sulfonamides Allergy Intermediate Unknown Uncoded 03/12/25 11:53 Review of Systems Review of Systems: ROS negative except as in HPI PMFSH Past Medical History Medical History Seasonal allergies Wrist injury Anxiety GERD (gastroesophageal reflux disease) Surgical History Surgical History H/O eye surgery Family History Family History Father Diabetes mellitus Hypothyroidism Hyperlipidemia Sibling Depression Ankylosing spondylitis Seronegative rheumatoid arthritis Asthma Anxiety Mother Depression Anxiety Grandparent Cancer Alcoholism Social History Social History Social History: Caffeine-soda Smoking status: Never smoker Alcohol intake: never Substance use: former Substance use type: marijuana Lack of Transportation: No Lack of Food: Never True Current Housing: I Have Housing Concerned About Future Housing: No Difficulty Paying Gas/Electric Bills: No Difficulty Paying for Meds: No Currently Unemployed: No Education: High School Diploma/GED Difficulty w/ Childcare or Family Care: No Living arrangements: with family Occupation/Education: student Gender identity (if verbalized by the patient): Female Agree to blood products: Yes Exam Narrative: pleasant, well-appearing, appropriately interactive, appears in pain but no acute distress Const: General: cooperative, healthy appearing, comfortable, no acute distress, well developed, alert, awake and Physically active Orientation/consciousness: patient oriented x3 HENMT: Head: normal to inspection, normocephalic and atraumatic Ears: hearing grossly normal bilaterally and external ears normal Face/Nose/Sinus: Normal external nose present, Normal nares present, Normal nasal mucous membranes and turbinates present and normal facial exam Face and sinus: normal facial exam Mouth: Yes Normal oral and palatal mucosa present, Yes lip normal, Yes tongue normal, Yes oropharynx normal and Yes moist mucous membranes Teeth and gingiva: dentition normal Throat: posterior oropharynx normal and tonsils normal ( erythematous) Eyes: General: appearance normal, both eyes and all related structures Alignment and Position: alignment normal and position normal Periorbital: periorbital findings normal Eyelids: eyelids normal Conjunctivae: conjunctivae normal Sclera: sclerae normal Cornea: corneas normal Pupils: Equal, round and reactive pupils present EOM: EOMs intact bilaterally Neck: Neck: normal visual inspection, full ROM and no lymphadenopathy Chest: Chest palpation & inspection: normal inspection of the chest Resp: Effort & Inspection: normal respiratory effort, able to speak in complete sentences, no audible wheezes, no respiratory distress and no use of accessory muscles Auscultation: clear to auscultation bilaterally Cardio: Jugular venous distension: no JVD Rate: regular rate Rhythm: regular rhythm GI: Inspection: normal to inspection GI Palp: No abdominal tenderness, No Tenderness to palpation present (GI), No Guarding due to palpation present (GI), No No hepatosplenomegaly present, No Palpable mass present and No Rebound tenderness present Skin: General skin exam: normal color, no rashes or lesions noted, elasticity normal and turgor normal Neuro: General: patient oriented x3, gait normal, tone normal and moves all extremities Cranial nerves: Yes CN's II-XII intact bilaterally, Yes Equal, round and reactive pupils present and Yes Bilaterally intact EOM present Speech: normal speech Motor exam (neuro): 5/5 motor strength present throughout and Normal motor muscle tone present throughout Sensory Exam: normal sensation Extrem: General: normal to inspection, normal exam except as noted and no pedal edema Psych: Appearance: grossly normal and well kempt Mental Status: mental status grossly normal Speech and movement: Normal speech and movement present Affect: normal affect Attitude: cooperative Thought process: Normal thought process present Course Course Emergency Course: Differential diagnosis includes but is not limited to migraine headache, tension headache, atypical migraine, stress headache, She is not currently on any specific migraine medication. She has had a previous head CT and there is no indication for repeat today. Will treat with IV Compazine 10 mg, Benadryl 25 mg, Toradol 30 mg, and Decadron 10 mg, and 1 LR 10:45 p.m. patient has had marked relief of her discomfort. Will discharge with trial of Compazine and Benadryl, naproxen Refer back to her PCP for follow-up, I discussed with the patient that there are other options and she is having them frequently enough, anywhere from 1 to 4 times a month that it would be reasonable to try Maxalt, some sumatriptan, or some of the other migraine specific medications. She is to return if there is fever, worsening headaches, significant vomiting, other concerns Medical decision making complexity and risk is moderate MDM Differential Diagnosis Differential Diagnosis: Differential diagnosis is in the ED course Discharge Plan Discharge Clinical Impression: Migraine Qualifiers: Migraine type: migraine (< 15 days per month) without aura Status migrainosus presence: without status migrainosus Intractability: not intractable Qualified Code(s): G43.009 - Migraine without aura, not intractable, without status migrainosus Patient Disposition: Home Condition: Stable Instructions: Antibiotic Form, Migraine Headache (ED) Additional Instructions: Increase fluids, Developed consistent schedule with went to bed at about the same time each night and waking up about the same time the morning Stay well-hydrated Good hydration Medications as prescribed Follow-up with your doctor in 1-2 weeks, and discussed some of the other potential medications such as Maxalt, sumatriptan as possible treatment Return to the emergency department if worsens Patient Language: Georgian Prescriptions: New prochlorperazine maleate [Compazine] 10 mg tablet 10 mg PO Q6H PRN (Reason: nausea and vomiting) Qty: 30 0RF Rx Instructions: Take over the counter Benadryl, 25 mg with each tablet of prochlorperazine naproxen 500 mg tablet 500 mg PO Q8-12H PRN (Reason: migraine headache) Qty: 60 0RF No Action cyclobenzaprine 5 mg tablet 5 mg PO TID PRN (Reason: muscle spasm) Qty: 20 0RF norethindrone ac-eth estradiol [05/28 ()] 1-20 mg-mcg tablet 1 tablet PO DAILY Qty: 63 2RF omeprazole 20 mg capsule,delayed release(DR/EC) 20 mg PO DAILY Qty: 90 1RF escitalopram oxalate 20 mg tablet 20 mg PO DAILY Qty: 90 1RF Follow-up/Referrals: Alexsandra Hardy DO [Primary Care Provider, [facility]] Time of Disposition: 23:01
--- NOTE | 2025-04-16 21:42 | PC.NURSE ---
DR CANALES AT THE BEDSIDE
--- OUTSIDE RECORDS SUMMARY | 2025-04-16 22:02 | XMS_ITS | Clinical Summary ---
Author Organization [facility] Address [address] [place] [address] Care Team Providers Care Maitre D Name Role Phone Jayne Maguire Avinash [employer] Primary Care Provider Source Comments [facility],non-owned Affiliates and Associated Physician Practices is amultiple site organization consisting of ambulatory clinics and hospital sitesin [place], [place], [place] and [place]. This disclosure is being madepursuant to the Care Everywhere program and may not contain all information available regarding this patient. 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
--- OUTSIDE RECORDS SUMMARY | 2025-04-16 22:02 | XMS_ITS | Clinical Summary ---
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 Gender Identity Not on file Sexual Orientation [...] 2020 Hepatitis C 2022 COVID-19 Vaccine ( - season) 2025 Influenza Adult (#1) 2025 HPV Vaccines Completed 09/14/2018, 06/16/2017 Hepatitis A Vaccines Aged Out No long er eligible based on patient's age to complete this topic Meningococcal Vaccine Aged Out No jesus shauna [...] to complete this topic Insurance [facility] Care Teams Entry Level Sales Consultant Relationship Specialty Start Date End Date Jayne Maguire, MAGNETIC TAPE COMPOSER OPERATOR- [address] [place] [address] PCP - General NURSE PRACTITIONER 04/16/19
--- OUTSIDE RECORDS SUMMARY | 2025-04-16 22:02 | XMS_ITS | Encounter Summary ---
Author Organization [facility] Address [address] [place] [id number] Care Team Providers Care Client Service Professional Name Role Phone Jayne Maguire [facility] Primary Care Provider + Encounter Details Date Type Department Care Team (Late st Contact Info) Description 10/14/2018 Abstract [facility] CONVERSION [address] [place] [address] , Generic Conversion, Social History Tobacco Use Types Packs/Day Years Used Date Smoking Tobacco: Never Assessed Comments Unknown Sex and Gender Information Value Date Recorded Sex Assigned at Not on file 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 Gender Identity Not on file Sexual Orientation Not on file documented as of this encounter Plan of Treatment Not on file documented as of this encounter Visit Diagnoses Not on filedocumented in this encounter Additional Health Concerns Infection Onset Date Last Indicated Resolved Time COVID-19 Rule Out 04/08/2021 04/08/2021 04/08/2021 8:51 PM CHECK CLERK documented as of this encounter Care Teams Client Service Professional Relationship Specialty Start Date End Date Jayne Maguire [facility] [address] [place] [id number] PCP - General NURSE PRACTITIONER 04/16/19 documented as of this encounter
[2025-04-16] MEDS: dexAMETHasone SOD PHOS INJ 10 MG/ML 1 ML VIAL IV PUSH (22:03)
[2025-04-16] MEDS: KETOROLAC 30 MG/ML VIAL (*BKC) IV PUSH (22:04)
[2025-04-16] MEDS: PROCHLORPERAZINE EDISYLATE 10 MG/2 ML VIAL IV PUSH (22:04)
[2025-04-16] MEDS: SODIUM CHLORIDE 0.9% IV 1,000 ML 999 ML IV CONT (22:04)
--- NOTE | 2025-04-16 22:21 | PC.NURSE ---
PATIENT RESTING ON STRETCHER. CALL LIGHT IN REACH. MEDICATED PER JUL. BOYFRIEND AT HER SIDE.
[2025-04-16 23:06] VITALS: BP 113/82; PULSE 71; RESP 16; O2SAT 100
== END 2025-04-16 23:07 | disposition home or self-care (01) ==
PROVIDERS: Emergency Provider Emergency Medicine; PCP Family Medicine
DX: G43.009 Migraine without aura, not intractable, without status migrainosus (principal)
CPT/HCPCS: 96361; 96374; 96375; 99284; J0780; J1100; J1200; J1885; J7030